=== PATIENT | male | born 1950 | race Caucasian/White ===

== ENCOUNTER 2022-03-13 05:56 | Inpatient (IN) ==
--- NOTE | 2022-02-27 11:18 | Anesthesiology Consultation ---
Date of Service February 27, 2022 Assessment & Plan (1) Encounter for pre-operative examination: - check BSG am DOS. - COVID screening: Per curriculum and assessment coordinator on 02/27/2022: Travel screen negative, no known COVID-19 positive contacts or current COVID-19 related symptoms in past 2 weeks. Pt vaccinated. Surgeon arranging preop COVID testing, scheduled 03/07/2022. Awaiting results. Chart Review Chart Review: Acceptable Risk for Surgery and Patient NOT seen in Pre Admission Testing History Surgery Operation Date: 03/11/22 07:45 Proposed Procedures p L4-L5 Revision Decompression and Fusion Spinal Cord Monitoring - João Montiel DO Height/Weight Height: 6 ft Weight: 102.965 kg Allergies Allergy/AdvReac Type Severity Reaction Status Date / Time propoxyphene Allergy Severe severe Verified 02/27/22 09:21 [[facility] hives Medications Home Medications Medication Instructions Recorded Confirmed Last Taken aspirin 81 mg tablet,delayed 81 mg PO QAM 05/24/19 02/27/22 Unknown release (Adult Low Dose Aspirin) meloxicam 7.5 mg tablet 7.5 mg PO QAM 05/24/19 02/27/22 Unknown multivitamin 1 tab PO QAM 05/24/19 02/27/22 Unknown omeprazole 20 mg capsule,delayed 20 mg PO QAM 05/24/19 02/27/22 Unknown release Medical Thc 1 dose inhalation UD PRN Pain 02/27/22 02/27/22 Unknown acetaminophen 500 mg tablet 1,000 - 2,000 mg PO TID PRN Pain 02/27/22 02/27/22 Unknown benazepril 40 mg tablet 40 mg PO QAM 02/27/22 02/27/22 Unknown hydrochlorothiazide 25 mg tablet 25 mg PO QAM 02/27/22 02/27/22 Unknown pioglitazone 30 mg tablet (Actos) 30 mg PO QAM 02/27/22 02/27/22 Unknown potassium 99 mg tablet 99 mg PO QAM 02/27/22 02/27/22 Unknown simvastatin 10 mg tablet 10 mg PO QAM 02/27/22 02/27/22 Unknown Past Medical History Medical History BPH (benign prostatic hyperplasia) no medication Diabetes mellitus, type 2 niddm GERD (gastroesophageal reflux disease) Hip pain Hyperlipidemia Hypertension Knee pain Left Lumbar disc herniation with radiculopathy Lumbar facet joint pain Medical marijuana use Nausea and vomiting after administration of anesthetic agent Spinal stenosis, lumbar region, with neurogenic claudication Trochanteric bursitis of right hip Weakness of right lower extremity Past Family History Family History Other No family history of adverse response to anesthesia Past Surgical History Surgical History H/O lumbar discectomy (~05/2021) laminectomy and discectomy (Dr Anuj Holbrook) [facility] History of appendectomy History of cataract surgery History of colonoscopy Hx of appendectomy S/P epidural steroid injection Social History Smoking Status: Never smoker Do You Dip or Chew Tobacco: No Hx Alcohol Use: Yes Alcohol type: beer alcohol intake frequency: a few times a month Hx Substance Use: Yes (medical marijuana) substance use type: marijuana Last Used Substance Other:: daily Lab Results Anesthesia Preop Results Results Anesthesia Widget: WBC 4.90 K/ul (4.8-10.8) 02/20/22 Hgb 14.0 g/dl (14.0-18.0) 02/20/22 Hct 40.9 % (40.1-51.0) 02/20/22 Plt 174 K/uL (130-400) 02/20/22 Na 142 mmol/L (136-145) 02/20/22 K 4.0 mmol/L (3.5-5.1) 02/20/22 Cl 106 mmol/L (98-107) 02/20/22 CO2 30 mmol/L (21-32) 02/20/22 BUN 21 mg/dl (6-23) 02/20/22 Creat 1.10 mg/dl (0.6-1.4) 02/20/22 Glucose Level 80 mg/dl (70-99(Fasting)) 02/20/22 PT 11.9 Seconds (9.0-12.0) 02/20/22 PTT 27.6 Seconds (21.0-31.0) 02/20/22 INR 1.1 (0.9-1.1) 02/20/22 Urine Color Yellow 02/20/22 Urine Appearance Clear (Clear) 02/20/22 Urine pH 7.0 (4.5-7.5) 02/20/22 Urine Specific Eldridge 1.027 (1.000-1.030) 02/20/22 Urine Protein Negative (Negative) 02/20/22 Urine Glucose (UA) Negative (Negative) 02/20/22 Urine Ketones Trace (Negative) H 02/20/22 Urine Blood Negative (Negative) 02/20/22 Urine Nitrite Negative (Negative) 02/20/22 Urine Bilirubin Negative (Negative) 02/20/22 Urine Urobilinogen Negative (Negative) 02/20/22 Urine Leukocyte Esterase Negative (Negative) 02/20/22 Blood Type B Positive 02/20/22 Antibody Screen NEGATIVE 02/20/22 Testing Electrocardiogram Date: 02/20/22 NSR, rate 81 bpm Chest X-Ray Date: 02/20/22 PA and lateral chest radiographs are obtained. No prior studies are available for comparison at the time of dictation. The heart is enlarged noting atherosclerotic calcification of the thoracic aorta. The pulmonary vasculature is noncongested. Nonspecific interstitial thickening is likely chronic. There is mild bibasilar scarring/atelectasis. No airspace consolidation or pleural effusion is identified. There is no pneumothorax. The skeletal structures are osteopenic. The bony thorax appears intact. IMPRESSION: Cardiomegaly with no active disease in the chest.
[~2022-03-13 05:56] MED LIST: ACETAMINOPHEN 500 MG TAB PO SCH; CeleBREX 200 MG CAP PO SCH; GABAPENTIN 300 MG CAP PO SCH; LR 15ML/HR IV SCH; ceFAZolin 2000MG 2,000 MG/15 ML SYR IV SCH
[2022-03-13] MEDS ORDERED: ACETAMINOPHEN 500 MG TAB PO SCH (06:00)
[2022-03-13] MEDS ORDERED: ceFAZolin 2000MG 2,000 MG/15 ML SYR IV SCH (06:00)
[2022-03-13] MEDS ORDERED: GABAPENTIN 300 MG CAP PO SCH (06:00)
[2022-03-13] MEDS ORDERED: CeleBREX 200 MG CAP PO SCH (06:00)
[2022-03-13] MEDS ORDERED: LR 15ML/HR IV SCH (07:15)
[2022-03-13] MEDS ORDERED: ceFAZolin 330 MG/ML 1 GM VIAL ONE (07:25)
[2022-03-13] MEDS ORDERED: BUPIVACAINE/EPINEPHRINE 0.25% 1:200,000 30 ML VIAL ONE (07:25)
[2022-03-13] MEDS ORDERED: ONDANSETRON INJ 2 MG/ML 2 ML VIAL ONE (07:31)
[2022-03-13] MEDS ORDERED: fentaNYL citrate 100 MCG/2 ML VIAL ONE ×2 (07:31→09:16)
[2022-03-13] MEDS ORDERED: ROCURONIUM BROMIDE 10 MG/ML 5 ML VIAL IV ONE (07:31)
[2022-03-13] MEDS ORDERED: MIDAZOLAM HCL 1 MG/ML 2ML VIAL ONE (07:31)
[2022-03-13] MEDS ORDERED: LIDOCAINE 2% MPF LOCAL 5 ML VIAL INFIL ONE (07:31)
[2022-03-13] MEDS ORDERED: PROPOFOL IV EMULSION 10 MG/ML 20 ML VIAL IV ONE (07:31)
[2022-03-13] MEDS ORDERED: DEXAMETHASONE SOD INJ 4 MG/ML VIAL ONE (07:31)
--- NOTE | 2022-03-13 07:46 | History & Physical Bridge Note ---
Date of Service March 13, 2022 History & Physical Bridge Note I have examined the patient, reviewed the History & Physical and in the interval since the performance of the History & Physical I have noted the following changes of clinical significance: no changes noted
[2022-03-13] MEDS ORDERED: SCOPOLAMINE 1 MG TDSY TD ONE (07:47)
--- NOTE | 2022-03-13 07:47 | History & Physical Report ---
Date of Service March 13, 2022 Assessment & Plan (1) Neurogenic claudication due to lumbar spinal stenosis: Plan: L4-L5 revision decompression fusion History of Present Illness Chief Complaint: Chronic back and leg pain Primary Care Provider: Ayush Wilson MD This is a 72-year-old male presents with worsening back and leg after failed extensive course of nonoperative care is here for surgical invention. Allergies Allergy/AdvReac Type Severity Reaction Status Date / Time propoxyphene Allergy Severe severe Verified 03/13/22 06:23 [From [facility]] [facility] Home Medications Medication Instructions Recorded Confirmed Type aspirin 81 mg tablet,delayed 81 mg PO QAM 05/24/19 03/13/22 History release (Adult Low Dose Aspirin) meloxicam 7.5 mg tablet 7.5 mg PO QAM 05/24/19 03/13/22 History multivitamin 1 tab PO QAM 05/24/19 03/13/22 History omeprazole 20 mg capsule,delayed 20 mg PO QAM 05/24/19 03/13/22 History release Medical Thc 1 dose inhalation UD PRN Pain 02/27/22 03/13/22 History acetaminophen 500 mg tablet 1,000 - 2,000 mg PO TID PRN Pain 02/27/22 03/13/22 History benazepril 40 mg tablet 40 mg PO QAM 02/27/22 03/13/22 History hydrochlorothiazide 25 mg tablet 25 mg PO QAM 02/27/22 03/13/22 History pioglitazone 30 mg tablet (Actos) 30 mg PO QAM 02/27/22 03/13/22 History potassium 99 mg tablet 99 mg PO QAM 02/27/22 03/13/22 History simvastatin 10 mg tablet 10 mg PO QAM 02/27/22 03/13/22 History Past Med/Surg History Medical History BPH (benign prostatic hyperplasia) no medication Diabetes mellitus, type 2 niddm GERD (gastroesophageal reflux disease) Hip pain Hyperlipidemia Hypertension Knee pain Left Lumbar disc herniation with radiculopathy Lumbar facet joint pain Medical marijuana use Nausea and vomiting after administration of anesthetic agent Spinal stenosis, lumbar region, with neurogenic claudication Trochanteric bursitis of right hip Weakness of right lower extremity Surgical History H/O lumbar discectomy (~05/2021) laminectomy and discectomy (Dr Anuj Holbrook) [facility] [place] History of appendectomy History of cataract surgery History of colonoscopy Hx of appendectomy S/P epidural steroid injection Family History Other No family history of adverse response to anesthesia Social History Smoking Status: Never smoker Second Hand Exposure: No; Do You Dip or Chew Tobacco: No; Tobacco Cessation Education Requested by Patient: No Hx Alcohol Use: Yes Alcohol type: beer Hx Substance Use: Yes (medical marijuana) Last Used Substance Other:: daily Preferred Language: Guamanian Communication Ability: Effective Hearing Ability: Normal Sales Contractor Required: No Beliefs That Will Affect Care: None marital status: Current Living Situation: Alone current occupational status: employed current occupation: [employer]- 2 days a week. Other Information That Helps Us Care for You: No Feels Safe at Home: Yes Safety Concerns: Feels Safe At This Time Assistive Devices: Cane, Denture - Upper, Denture - Lower and Glasses Assistive Devices Comment: cane prn Physical Exam Physical Exam: Patient is alert and oriented Heart regular rhythm Lungs clear Results & Data Results & Data ([facility]) Vital Signs (Past 12 Hours) Vital Signs Temp Pulse Resp BP Pulse Ox O2 Del Method 03/13/22 06:28 36.8 C 78 18 159/87 H 97 Room Air
[2022-03-13] MEDS ORDERED: LABETALOL HCL IV 5 MG/ML 20ML IV PRN (07:54)
[2022-03-13] MEDS ORDERED: ATROPINE SULFATE 0.1 MG/ML 10ML SYR IV PRN (07:54)
[2022-03-13] MEDS ORDERED: NALOXONE HCL 0.4 MG/1 ML VIAL/CARP IV PRN ×2 (07:54→12:35)
[2022-03-13] MEDS ORDERED: PROMETHAZINE HCL 12.5 MG in SODIUM CHLORIDE 0.9% 50 ML IV PRN ×2 (07:54→12:35)
[2022-03-13] MEDS ORDERED: ONDANSETRON INJ 2 MG/ML 2 ML VIAL IV PRN ×2 (07:54→12:35)
[2022-03-13] MEDS ORDERED: FLUMAZENIL 0.1 MG/1 ML 10 ML VIAL IV PRN (07:54)
[2022-03-13] MEDS ORDERED: ePHEDrine sulfate 50 MG/ML AMP IV PRN (07:54)
[2022-03-13] MEDS ORDERED: GLYCOPYRROLATE 0.2 MG/ML VIAL ONE (08:27)
[2022-03-13] MEDS ORDERED: NEOSTIGMINE METHYLSULFATE 1 MG/ML 10ML VIAL ONE (08:27)
[2022-03-13] MEDS ORDERED: KETAMINE 50 MG/5 ML SYRINGE ONE (08:32)
[2022-03-13] MEDS ORDERED: ePHEDrine sulfate 50 MG/ML SYR ONE (09:01)
[2022-03-13] MEDS ORDERED: FLOSEAL HEMOSTATIC MATRIX 10ML TOP ONE (09:21)
--- NOTE | 2022-03-13 09:28 | Operative Report ---
Post Operative Report Pre & Post Diagnosis Operation Date: 03/13/22 07:45 Pre-Op Diagnosis: Radiculopathy, Lumbar Region Post-Op Diagnosis: Radiculopathy, Lumbar Region I identified the patient and participated in the time-out.: Yes Procedure Operation Date: 03/13/22 07:45 Actual Procedures 1 revision decompression with bilateral medial facetectomies and foraminotomies L3-L4 L4-5 per #2 posterior spinal fusion L4-5 #3 placement posterior instrumentation L4-5. #4 interbody fusion L4-L5. #5 placement of Spira 14 x 26 mm cage at L4-5 per #6 placement locally harvested morselized autograft in the posterior gutters. #7 placement of I factor combined with V toss in the interbody space and posterior lateral gutters. Surgeon João Montiel, Nurse Auditor Cecilia Martines Estimated Blood Loss 100 Findings Consistent with Post-Op Diagnosis Specimens None Indications This is a 72-year-old male who presents above-mentioned diagnosis after failed course of nonoperative care is here for surgical invention. Description of Procedure Patient was met with identified informed consent obtained. Patient was then taken to the operative suite underwent a patient placed in a prone position on the [place] table top Jg frame. All bony prominences well-padded eyes inspected to ensure no external pressure placed upon them. This point lumbar spine was prepped and draped in a normal sterile fashion. Utilizing the previous incision site sharp dissection with assistance of Bovie cautery performed down to and exposing the remaining lamina and transverse processes of L4-L5 bilaterally. Then performed a complete revision complete laminectomy of L4 partial laminectomy of L3 including bilateral medial facetectomies and foraminotomies addressing severe spinal stenosis as well as recurrent disc herniation. After this complete pedicle screws were placed in L4-L5 bilaterally with assistance of fluoroscopy and appropriately sized brook placed. Bilateral transforaminal approach and right complete discectomy was performed endplates curetted to subcortical being bone and a 14 x 26 mm spiral cage filled with I factor tapped in position. The rods then compressed locked into final position bilaterally. The transverse processes of L4-L5 burred to subcortically bone. I factor combined with V toss and locally harvested morselized autograft was placed in the posterior gutters. 15 round ABRAHAM drain inserted. The incision was then closed with 1 Vicryl in the fascia 2-0 Vicryl subcutaneously and 4 Monocryl for final skin closure. Steri-Strip sterile dressings placed. Patient was awakened taken to PACU in stable condition. Please note spinal cord monitoring was utilized at the procedure no changes noted. Lastly Cecilia Martines was present at the entire procedure involved the patient positioning complex portions of the surgery and final skin closure. I attest to the content of the Intraoperative Record and any orders documented therein. Any exceptions are noted below.
[2022-03-13] MEDS: fentaNYL citrate 100 MCG/2 ML VIAL IV PRN ×4 (09:58→10:15)
[2022-03-13] MEDS: HYDROmorphone INJ 1 MG/ML SYRINGE IV PRN ×8 (10:18→11:16)
--- NOTE | 2022-03-13 10:39 | Fluoroscopy Report ---
FL lumbar spine 2-3V CLINICAL HISTORY: L4-L5 REVISION DECOMPRESSION AND FUSION COMPARISON STUDY: Lumbar spine MRI April 22, 2021. FLUOROSCOPY TIME: 21 seconds. FLUOROSCOPIC IMAGES: 2 FINDINGS: Fluoroscopy was provided during L4-L5 discectomy, posterior decompression and bilateral ped icle screw fusion. Hardware is intact. No unexpected radiopaque foreign bodies. IMPRESSION: Fluoroscopy provided during L4-L5 discectomy, posterior decompression and bilateral pedi aysha screw fusion ACT 112: Negative or not required by law. Electronically signed by: Garrett Dawn M.D. 03/13/2022 10:37 AM
--- NOTE | 2022-03-13 11:43 | Anesthesiology Progress Note ---
Date of Service March 13, 2022 Anesthesia Post Procedure Vital Signs Vital Signs: Temp Pulse Pulse Resp BP Pulse Ox O2 Del Method 03/13/22 11:20 80 16 141/78 H 94 Nasal Cannula 03/13/22 11:05 82 13 124/68 97 Nasal Cannula 03/13/22 10:55 36.4 C L 82 13 125/63 96 Nasal Cannula 03/13/22 10:45 83 12 119/71 97 Nasal Cannula 03/13/22 10:35 78 12 117/71 94 Room Air 03/13/22 10:25 88 17 155/89 H 95 Room Air 03/13/22 10:15 81 16 147/79 H 95 Room Air 03/13/22 10:05 81 17 151/89 H 98 Oxymask 03/13/22 09:55 80 18 151/83 H 97 Oxymask 03/13/22 09:46 36.2 C L 78 18 142/74 H 95 Oxymask 03/13/22 06:28 36.8 C 78 18 159/87 H 97 Room Air O2 Flow Rate 03/13/22 11:20 2 03/13/22 11:05 2 03/13/22 10:55 2 03/13/22 10:45 2 03/13/22 10:35 03/13/22 10:25 03/13/22 10:15 03/13/22 10:05 10 03/13/22 09:55 10 03/13/22 09:46 10 03/13/22 06:28 Pain Intensity Bilateral Back: Pain Intensity: 5 Transfer of Care Handoff Completed per policy Notes Mental Status: alert / awake / arousable Patient Amnestic to Procedure: Yes Nausea / Vomiting: adequately controlled Pain: adequately controlled Airway Patency, RR, SpO2: stable & adequate BP & HR: stable & adequate Hydration State: stable & adequate Anesthetic Complications: no major complications apparent
[2022-03-13] MEDS ORDERED: ACETAMINOPHEN 1,000 MG/100 ML VIAL IV PRN (12:35)
[2022-03-13] MEDS ORDERED: hydrOXYzine HCl 25 MG TAB PO PRN (12:35)
[2022-03-13] MEDS ORDERED: FAMOTIDINE 20 MG TAB PO PRN (12:35)
[2022-03-13] MEDS ORDERED: HYDROmorphone INJ 0.5 MG/0.5 ML SYR IV PRN (12:35)
[2022-03-13] MEDS ORDERED: bisacodyL 10 MG SUPP PR PRN (12:35)
[2022-03-13] MEDS ORDERED: LORazepam 0.5 MG TAB PO PRN (12:35)
[2022-03-13] MEDS ORDERED: MAGNESIUM HYDROXIDE SUSP 30 ML UDC PO PRN (12:35)
[2022-03-13] MEDS ORDERED: HYDROmorphone INJ 1 MG/ML SYRINGE IV PRN (12:35)
[2022-03-13] MEDS ORDERED: LORazepam 0.5 MG in SYRINGE 0.25 ML IV PRN (12:35)
[2022-03-13] MEDS ORDERED: METOCLOPRAMIDE HCL INJ 5 MG/ML 2 ML VIAL IV PRN (12:35)
[2022-03-13] MEDS ORDERED: traMADol HCL 50 MG TABLET PO PRN (12:35)
[2022-03-13] MEDS ORDERED: SOD PHOSPHATE/SOD BIPHOSPHATE ENEMA 132 ML BTL PR PRN (12:35)
[2022-03-13] MEDS ORDERED: ONDANSETRON 4 MG OD TAB PO PRN (12:35)
[2022-03-13] MEDS ORDERED: diphenhydrAMINE Capsule 25 MG CAP PO PRN (12:35)
[2022-03-13] MEDS ORDERED: ALUMINUM/MAGNESIUM SUSP 30 ML UDC PO PRN (12:35)
[2022-03-13] MEDS ORDERED: PHARMACY GLYCEMIC MGMT CONSULT PRN (12:35)
[2022-03-13] MEDS: SODIUM CHLORIDE 0.9% 1000ML 1,000 ML IV SCH ×2 (13:10→19:53)
[2022-03-13] MEDS ORDERED: DEXTROSE 50% 50 ML SYRINGE IV PRN (13:30)
[2022-03-13] MEDS ORDERED: GLUCAGON FOR INJ 1 MG VIAL IM PRN (13:30)
[2022-03-13] MEDS ORDERED: GLUCOSE 10 TAB/TUBE PO PRN (13:30)
[2022-03-13] MEDS ORDERED: CARBOHYDRATES FOR HYPOGLYCEMIA PO PRN (13:30)
[2022-03-13] MEDS ORDERED: GLUCOSE 40% GEL 15 GM TUBE PO PRN (13:30)
[2022-03-13] MEDS: INSULIN ASPART PER UNIT SC SCH ×3 (13:48→21:15)
[2022-03-13] MEDS: INSULIN HUMAN NPH SC SCH (13:57)
--- NOTE | 2022-03-13 17:18 | Hospitalist Consultation ---
Date of Consultation March 13, 2022 Assessment & Plan (1) Neurogenic claudication due to lumbar spinal stenosis: - Hx of lumbar radiculitis and spondylolisthesis of the lubar region, lunar disc herniation with radiculopathy Pain management, bowel regimen and DVT ppx per the primary team - PT/OT consults - Follow am CBC to monitor for acute blood loss, last hgb was 14 on 02/20 (2) Diabetes mellitus, type 2: - ISS with accuchecks achs -Unknown last A1c, check with a.m. labs, glucose fingersticks are running from the 130s to 150s today -Glycemic pharmacy consulted -Holding Actos during hospital stay (3) Hypertension: - Continue HCTZ, benazepril (4) Hyperlipidemia: -Continue statin therapy (5) GERD (gastroesophageal reflux disease): -Continue omeprazole (6) BPH (benign prostatic hyperplasia): -History of such, monitor status post anesthesia patient is able to urinate, bladder scans as needed DVT PPx: - teds, scds CODE: Full code Dispo: From home, likely to remain in the hospital x 1-2 days Supervising Physician Co-Signing Physician Notes Patient was seen and examined independently at bedside. Chart reviewed. Case discussed with Verona MATOS and agree with the documentation above with regards to HPI, PE, A/P. In summary, this is a 72 year old male with lumbar spinal stenosis with neurogenic claudication who underwent back surgery by Dr Montiel today. Post op, he feels good. AAOx4, sitting in chair, conversing well. Pain is controlled. tolerated po well, no N/V. voided without issues. Further surgical management per primary team. Chronic medical conditions stable. Rest as per the note above. History of Present Illness Reason for Consultation: Medical management Requesting Physician: Dr. Montiel Attending Physician: João Montiel DO History of Present Illness This is a 72 M with PMHx of HTN, HLD, DM type II, BPH, GERD and other medical conditions listed below who presented for lumbar decompression fusion by Dr. Montiel. He has had previous lumbar discectomy in May [address] Anuj Holbrook at [facility]. Today he had decompression with bilateral medial facetectomy and foraminotomies from L3-L5 and spinal fusion of L4-L5 by Dr. Montiel. Patient is doing well, reports his pain in his lower back status post surgery is coming back slightly. He is sitting up in a bedside chair. Denies any sharp pains going down both legs, no numbness or tingling. Prior to surgery he had shooting pains radiating down posterior aspect of both legs which is currently gone. He denies any bowel or bladder incontinence. States that he has been drinking fluids without any difficulty and is awaiting dinner. He has urinated 3-4 times since having surgery, denies any issues with urinary habits. Last bowel movement was this morning. Patient also notes that he uses medical marijuana card, and smokes a bowl/joint multiple times per day since he was 18. He drinks alcohol about 2 times per week, 3 beers at a time. He also notes having to previously seek out "black market" for pain medications as he was not being administered them by his pain management PCP due to having a medical marijuana card. He states this was only because his back pain was so severe status post his first surgery back in May. He denies any other IV drug use or abuse. Patient lives at home by himself and a 20 pound dog. He is worried about not being able to lift her as she does not walk well. Patient does not follow his glucoses at home at all, but does take his Actos as directed. Allergies Allergy/AdvReac Type Severity Reaction Status Date / Time propoxyphene Allergy Severe severe Verified 03/13/22 06:23 [From [facility]] hives Home Medications Medication Instructions Recorded Confirmed Type aspirin 81 mg tablet,delayed 81 mg PO QAM 05/24/19 03/13/22 History release (Adult Low Dose Aspirin) meloxicam 7.5 mg tablet 7.5 mg PO QAM 05/24/19 03/13/22 History multivitamin 1 tab PO QAM 05/24/19 03/13/22 History omeprazole 20 mg capsule,delayed 20 mg PO QAM 05/24/19 03/13/22 History release Medical Thc 1 dose inhalation UD PRN Pain 02/27/22 03/13/22 History acetaminophen 500 mg tablet 1,000 - 2,000 mg PO TID PRN Pain 02/27/22 03/13/22 History benazepril 40 mg tablet 40 mg PO QAM 02/27/22 03/13/22 History hydrochlorothiazide 25 mg tablet 25 mg PO QAM 02/27/22 03/13/22 History pioglitazone 30 mg tablet (Actos) 30 mg PO QAM 02/27/22 03/13/22 History potassium 99 mg tablet 99 mg PO QAM 02/27/22 03/13/22 History simvastatin 10 mg tablet 10 mg PO QAM 02/27/22 03/13/22 History oxycodone 5 mg tablet 5 mg PO Q6H PRN pain, severe #30 03/14/22 Rx tabs tramadol 50 mg tablet 50 mg PO Q6H PRN pain, moderate 03/14/22 Rx #30 tabs Patient History Medical History (Updated 03/13/22 @ 17:21 by Verona Persaud PA-C) BPH (benign prostatic hyperplasia) no medication Diabetes mellitus, type 2 niddm GERD (gastroesophageal reflux disease) Hip pain Hyperlipidemia Hypertension Knee pain Left Lumbar disc herniation with radiculopathy Lumbar facet joint pain Medical marijuana use Nausea and vomiting after administration of anesthetic agent Spinal stenosis, lumbar region, with neurogenic claudication Trochanteric bursitis of right hip Weakness of right lower extremity Surgical History H/O lumbar discectomy (~05/2021) laminectomy and discectomy (Dr Anuj Holbrook) [facility] History of appendectomy History of cataract surgery History of colonoscopy Hx of appendectomy S/P epidural steroid injection Family History Other No family history of adverse response to anesthesia Social History Smoking Status: Never smoker Second Hand Exposure: No; Do You Dip or Chew Tobacco: No; Tobacco Cessation Education Requested by Patient: No Hx Alcohol Use: Yes Alcohol type: beer Hx Substance Use: Yes (medical marijuana) Last Used Substance Other:: daily Preferred Language: Chinese Communication Ability: Effective Hearing Ability: Normal [place] Nurse Required: No Beliefs That Will Affect Care: None marital status: Current Living Situation: Alone current occupational status: employed current occupation: [employer]- 2 days a week. Other Information That Helps Us Care for You: No Feels Safe at Home: Yes Safety Concerns: Feels Safe At This Time Assistive Devices: None Assistive Devices Comment: cane prn Review of Systems Review of Systems: Constitutional: No fever, sweats or chills Eyes: No diplopia, no worsening or blurred vision ENT: normal hearing, no trouble swallowing Respiratory: No cough, sputum, dyspnea at rest or on exertion Cardiovascular: No chest pain, tightness or palpitations Abdomen: No pain, nausea, vomiting, diarrhea or constipation Musculoskeletal: No joint pain, calf pain, swelling Back: Slight back pain status post surgical procedure Neurologic: No weakness, numbness/tingling, or balance problems Psychiatric: No anxiety or depression Skin: No rash or itch Physical Exam Physical Exam: General: awake, alert, no apparent distress Head: Normocephalic, atraumatic ENT: PERRL, EOMI, no pharyngeal exudate, mucous membranes moist Chest: Clear to auscultation, on room air, no adventitious breath sounds Cardiac: Regular rate and rhythm, no murmur, no JVD, normal peripheral pulses, good capillary refill Abdominal: NABS x 4 quadrants, soft, nondistended, nontender to palpation, no rebound or guarding Back: Dressing is C/D/I, ABRAHAM drain in place with serosanguineous bloody outs Extremities: Normal inspection, + trace peripheral edema in BLE, no erythema, calfs nontender to palpation Psych: Normal mood and affect Neuro: AAO x 3, strength intact bilaterally and rated 5/5, no motor deficits, speech is clear, no peripheral sensory deficits Results & Data Results & Data ([facility]) Vital Signs (Past 12 Hours) Vital Signs Temp Pulse Pulse Pulse Resp BP Pulse Ox 03/13/22 16:55 87 03/13/22 15:15 36.7 C 101 H 16 131/75 95 03/13/22 14:10 95 H 18 164/95 H 96 03/13/22 13:10 88 20 144/72 H 96 03/13/22 12:40 36.5 C 83 19 121/73 95 03/13/22 12:20 73 13 114/63 93 03/13/22 12:05 72 13 126/60 93 03/13/22 11:50 76 20 122/74 93 03/13/22 11:35 77 21 140/86 94 03/13/22 11:20 80 16 141/78 H 94 03/13/22 11:05 82 13 124/68 97 03/13/22 10:55 36.4 C L 82 13 125/63 96 03/13/22 10:45 83 12 119/71 97 03/13/22 10:35 78 12 117/71 94 03/13/22 10:25 88 17 155/89 H 95 03/13/22 10:15 81 16 147/79 H 95 03/13/22 10:05 81 17 151/89 H 98 03/13/22 09:55 80 18 151/83 H 97 03/13/22 09:46 36.2 C L 78 18 142/74 H 95 03/13/22 06:28 36.8 C 78 18 159/87 H 97 O2 Del Method O2 Flow Rate 03/13/22 16:55 03/13/22 15:15 Room Air 03/13/22 14:10 Nasal Cannula 2 03/13/22 13:10 Nasal Cannula 2 03/13/22 12:40 Nasal Cannula 2 03/13/22 12:20 Nasal Cannula 2 03/13/22 12:05 Nasal Cannula 2 03/13/22 11:50 Nasal Cannula 2 03/13/22 11:35 Nasal Cannula 2 03/13/22 11:20 Nasal Cannula 2 03/13/22 11:05 Nasal Cannula 2 03/13/22 10:55 Nasal Cannula 2 03/13/22 10:45 Nasal Cannula 2 03/13/22 10:35 Room Air 03/13/22 10:25 Room Air 03/13/22 10:15 Room Air 03/13/22 10:05 Oxymask 10 03/13/22 09:55 Oxymask 10 03/13/22 09:46 Oxymask 10 03/13/22 06:28 Room Air Laboratory Results 03/13/22 03/13/22 03/13/22 12:57 10:29 06:30 POC Glucose 157 H 156 H 134 H SARS-CoV-2, RNA, NAAT 03/13/22 06:10 POC Glucose SARS-CoV-2, RNA, NAAT NEGATIVE Diagnostic Findings Lumbar Spine X-Ray 03/13/22 07:45 [place] lumbar spine 2-3V CLINICAL HISTORY: L4-L5 REVISION DECOMPRESSION AND FUSION COMPARISON STUDY: Lumbar spine MRI April 22, 2021. FLUOROSCOPY TIME: 21 seconds. FLUOROSCOPIC IMAGES: 2 FINDINGS: Fluoroscopy was provided during L4-L5 discectomy, posterior decompression and bilateral pedicle screw fusion. Hardware is intact. No unexpected radiopaque foreign bodies. IMPRESSION: Fluoroscopy provided during L4-L5 discectomy, posterior decompression and bilateral pedicle screw fusion ACT 112: Negative or not required by law. Electronically signed by: Garrett Dawn M.D. 03/13/2022 10:37 AM
[2022-03-13] MEDS: ceFAZolin 2000MG 2,000 MG/15 ML SYR IV SCH ×2 (17:52→23:35)
[2022-03-13] MEDS: oxyCODONE HCL IR 5 MG TAB (IMMEDIATE RELEASE) PO PRN ×2 (17:52→23:34)
[2022-03-13] MEDS: DOCUSATE SODIUM/SENNA 50/8.6MG TAB PO SCH (19:54)
[2022-03-14] MEDS: SODIUM CHLORIDE 0.9% 1000ML 1,000 ML IV SCH (00:54)
[2022-03-14] MEDS: POLYETHYLENE (MIRALAX) 17 GM PACK PO SCH ×4 (06:02→23:59)
[2022-03-14] MEDS: oxyCODONE HCL IR 5 MG TAB (IMMEDIATE RELEASE) PO PRN ×3 (07:15→21:14)
[2022-03-14] MEDS: ACETAMINOPHEN 500 MG TAB PO PRN ×2 (07:15→17:26)
[2022-03-14] MEDS: SIMVASTATIN 10 MG TAB PO SCH (08:51)
[2022-03-14] MEDS: ENALAPRIL MALEATE 10 MG TAB PO SCH (08:51)
[2022-03-14] MEDS: hydroCHLOROthiazide 25 MG TAB PO SCH (08:51)
[2022-03-14] MEDS: ASPIRIN 81 MG ECTAB PO SCH (08:52)
[2022-03-14] MEDS: MULTIVITAMIN TAB PO SCH (08:52)
[2022-03-14] MEDS: PANTOprazole 40 MG TAB PO SCH (08:52)
[2022-03-14] MEDS: dexAMETHasone 6 MG in SYRINGE 0 ML IV SCH (08:53)
[2022-03-14] MEDS ORDERED: NON-FORMULARY MEDICATION (Potassium 99 mg Tablet) PO SCH (09:00)
[2022-03-14] MEDS ORDERED: NON-FORMULARY MEDICATION (Pioglitazone [Actos] 30 mg Tablet) PO SCH (09:00)
[2022-03-14 09:01] LABS: Basophils # (auto) 0.01 K/uL (0-0.2); Basophils % (auto) 0.1 %; Eosinophils # (auto) 0.01 K/uL (0-0.50); Eosinophils % (auto) 0.1 %; Hematocrit (blood only) 36.1 % (40.1-51.0); Hemoglobin 12.2 g/dl (14.0-18.0); Immature Granulocytes # (auto) 0.03 K/uL (0.00-0.02); Immature Granulocytes % (auto) 0.4 %; Lymphocytes # (auto) 0.55 K/uL (1.2-3.4); Lymphocytes % (auto) 6.6 %; Mean Corpuscular Hemoglobin 31.5 pg (25.0-34.0); Mean Corpuscular Hgb Conc 33.8 g/dL (32.0-36.0); Mean Corpuscular Volume 93.3 fL (80.0-100.0); Mean Platelet Volume 11.9 fL (9.4-12.4); Neutrophils % (auto) 80.8 %; Platelet Count 179 K/uL (130-400); RDW Coefficient of Variation 12.7 % (11.5-14.5); RDW Standard Deviation 43.3 fL (36.4-46.3); Red Blood Count 3.87 M/uL (4.63-6.08)
[2022-03-14 09:24] LABS: BUN Creatinine Ratio 14.9 (10-20); Calcium 8.8 mg/dl (8.5-10.1); Creatinine Clr Calc Pharmacy 70.7 ml/min; Est GFR (African American) 69.9 ml/min; Est GFR (Non-African American) 60.3 ml/min; Potassium 3.4 mmol/L (3.5-5.1)
[2022-03-14] MEDS: INSULIN HUMAN NPH SC SCH (09:33)
[2022-03-14] MEDS: INSULIN ASPART PER UNIT SC SCH ×4 (09:35→20:50)
[2022-03-14 09:41] LABS: Estimated Average Glucose 117 mg/dl; Hemoglobin A1C 5.7 % (4.5-5.6)
--- NOTE | 2022-03-14 10:58 | Pharmacy Report ---
Pharmacy Glycemic Short Note 2 - Date of Service March 14, 2022 - Glycemic Short BSG Results (Last 24 hours): 03/13/22 03/13/22 03/14/22 12:57 21:01 08:06 Glucose POC Glucose 157 H 115 H 105 H 03/14/22 08:26 Glucose 94 POC Glucose OUTPATIENT ANTIDIABETIC REGIMEN: * Pioglitazone 30 mg PO daily * HbA1c = 5.7% (03/14/22 ASSESSMENT: * 72 yo M admitted status post L4-L5 decompression and fusion. Pharmacy has been consulted to assist with inpatient glycemic management. Patient has history of T2DM well controlled as outpatient on Pioglitazone monotherapy. Given A1c is well below goal, could consider reducing Pioglitazone dose to 15 mg daily or discontinuing therapy altogether. Would leave this decision up to PCP. * Ordered and tolerating a T2DM diet. Received 8 mg IV dexamethasone intra operatively yesterday. Was started on NPH 30 units (0.3 units/kg) and Novolog based on weight/stress of 3. * Fasting BSG well controlled at 105 mg/dL this AM. No change to NPH. Patient ordered 6 mg IV dexamethasone daily x 3 days. * May have to loosen Novolog this afternoon. PLAN FOR INPATIENT GLYCEMIC CONTROL: * Hold outpatient oral diabetes medications * Basal insulin * NPH 30 units SC daily (to be give with IV dexamethasone) * Bolus insulin * NovoLog per scale ACHS or Q6hrs while NPO * Goal Range: Low 110 mg/dL - High 140 mg/dL * Correction Factor: 15 mg/dL/unit * Nutritional / Prandial insulin per carb ratio of 1 unit per 5 grams CHO consumed
[2022-03-14] MEDS ORDERED: POTASSIUM CHLORIDE CRTAB 20 MEQ TABCR PO ONE (12:24)
--- NOTE | 2022-03-14 14:13 | Orthopedic Progress Note ---
Date of Service March 14, 2022 Assessment & Plan (1) Neurogenic claudication due to lumbar spinal stenosis: Plan: This time continue physical therapy monitor ABRAHAM operatively discharge home in the next few days. Admission and Anticipated Discharge Date Admission Date: March 13, 2022 Subjective Patient's back pain is controlled leg symptoms markedly improved. Physical Exam Physical Exam: Patient is sitting up at the bedside. Is good strength donna ting. Appears comfortable. Results & Data ([facility]) Vital Signs (Past 12 Hours) Vital Signs Temp Pulse Resp BP Pulse Ox O2 Del Method 03/14/22 07:06 36.7 C 71 20 118/68 95 Room Air 03/14/22 04:05 36.8 C 79 124/73 94 Room Air
--- NOTE | 2022-03-14 14:30 | Hospitalist Progress Note ---
Date of Service March 14, 2022 Assessment & Plan (1) Neurogenic claudication due to lumbar spinal stenosis: Plan: S/p back surgery 03/13 (1.revision decompression with bilateral medial facetectomies and foraminotomies L3-L4 L4-5 per #2 posterior spinal fusion L4-5 #3 placement posterior instrumentation L4-5. #4 interbody fusion L4-L5. #5 placement of Spira 14 x 26 mm cage at L4-5 per #6 placement locally harvested morselized autograft in the posterior gutters. #7 placement of I factor combined with V toss in the interbody space and posterior lateral gutter) - pain management, DVT ppx, activities per primary team (2) Diabetes mellitus, type 2: Plan: A1c 5.7. Well controlled -Glycemic pharmacy managing insulin -Holding Actos during hospital stay (3) Hypertension: Plan: - Continue HCTZ, benazepril (4) Hyperlipidemia: Plan: -Continue statin therapy (5) GERD (gastroesophageal reflux disease): Plan: -Continue omeprazole (6) BPH (benign prostatic hyperplasia): Plan: -History of such, monitor status post anesthesia patient is able to urinate, bladder scans as needed Hypokalemia- repleted DVT PPx: per primary team Dispo: Per primary team. He is stable from hospitalist perspective. Admission and Anticipated Discharge Date Admission Date: March 13, 2022 Subjective He feels fine. Pain is controlled. Tolerating diet well. Voiding without issues. passing gas, no BM yet but feels like he is going to have one. He states he feels ready to go home today. Didn't get much sleep overnight. Physical Exam Physical Exam: General: Sitting comfortably in bed, not in distress, on room air HEENT: EOMI, PERRL, MMM Chest: Clear breath sounds bilaterally, no wheezes or crackles CVS: Regular rate and rhythm, normal heart sounds, no murmur Abdomen: Soft, non tender, not distended, normal bowel sounds Back: Incision site covered with dressing, ABRAHAM drain with serosanguineous output Neuro: Awake, alert, oriented, conversing well, non focal Extremities: No edema Results & Data Results & Data ([facility]) Vital Signs (Past 12 Hours) Vital Signs Temp Pulse Resp BP Pulse Ox O2 Del Method 03/14/22 07:06 36.7 C 71 20 118/68 95 Room Air 08/26/22 04:05 36.8 C 79 124/73 94 Room Air
[2022-03-14 16:03] VITALS: O2SAT 96
[2022-03-14] MEDS: DOCUSATE SODIUM/SENNA 50/8.6MG TAB PO SCH (20:50)
[2022-03-15] MEDS: POLYETHYLENE (MIRALAX) 17 GM PACK PO SCH ×2 (05:51→13:04)
[2022-03-15] MEDS: oxyCODONE HCL IR 5 MG TAB (IMMEDIATE RELEASE) PO PRN ×2 (06:19→11:06)
[2022-03-15 07:34] VITALS: PULSE 60; TEMP 98.1
[2022-03-15] MEDS: PANTOprazole 40 MG TAB PO SCH (08:27)
[2022-03-15] MEDS: hydroCHLOROthiazide 25 MG TAB PO SCH (08:27)
[2022-03-15] MEDS: ENALAPRIL MALEATE 10 MG TAB PO SCH (08:27)
[2022-03-15] MEDS: MULTIVITAMIN TAB PO SCH (08:27)
[2022-03-15] MEDS: SIMVASTATIN 10 MG TAB PO SCH (08:28)
[2022-03-15] MEDS: dexAMETHasone 6 MG in SYRINGE 0 ML IV SCH (08:28)
[2022-03-15] MEDS: ASPIRIN 81 MG ECTAB PO SCH (08:28)
[2022-03-15] MEDS ORDERED: INSULIN HUMAN NPH SC SCH (09:00)
[2022-03-15] MEDS: INSULIN ASPART PER UNIT SC SCH ×2 (09:39→13:21)
--- NOTE | 2022-03-15 09:57 | Discharge Summary ---
Date of Service March 15, 2022 Admission HPI Per Admitting Provider This is a 72-year-old male presents with worsening back and leg after failed extensive course of nonoperative care is here for surgical invention. Principal Diagnosis Lumbar spinal stenosis with radiculopathy Discharge Data Allergies Allergy/AdvReac Type Severity Reaction Status Date / Time propoxyphene Allergy Severe severe Verified 03/13/22 06:23 [From Karley] hivstephanie Consultations 03/13/22 12:35 Consult Hospitalist Routine Procedures Performed Operation Date: 03/13/22 07:45 Actual Procedures p L4-L5 Revision Decompression and Fusion, Spinal Cord Monitoring(Not Applicable) - João Montiel DO Ordered Studies 03/13/22 07:45 FL lumbar spine 2-3V Routine Hospital Course (1) Neurogenic claudication due to lumbar spinal stenosis: Patient underwent lumbar decompression fusion tolerated this well was taken to orthopedic floor postoperatively postop day 1 he was up and ambulating he is postop day 2 on postop day 2 he is up and ambulating good strength testing ABRAHAM drain decreased appropriately subsequently discharged home. Discharge orders instructions found in chart for further review. Total Time Total Time Spent Total Time Spent (In Minutes): 20 minutes Discharge Plan Discharge Items Patient Disposition: Home - Self-Care Reason For Visit: Radiculopathy, Lumbar Region Discharge Diagnosis: Lumbar spinal stenosis with radiculopathy Activity: As commented below Non-emergency contact: Primary Care Provider Call non-emergency contact if: you have any medication questions Follow-up/Referrals: Ayush Wilson MD [Primary Care Provider] - Diet: Regular Addtl Attending Provider Instructions: ACTIVITY RECOMMENDATIONS: SELF CARE INSTRUCTIONS AFTER THORACIC/LUMBAR FUSIONS 1. You may walk to your tolerance. It is good exercise for your legs and back. Expect some back and intermittent leg aches and pains. 2. You may perform "counter-top" level activities (make a sandwich, nan with a project, etc.). 3. No bending or lifting of more than 10 pounds or back twisting of any nature (roll like a log when turning in bed). 4. You may ride in a car for 20-30 minutes at a time. No driving until after your first visit with your doctor. 5. Frequent changes of position and restricting sitting to 30 minutes at a time will help limit the amount of back spasms and stiffness you may experience. 6. You may discontinue the use of ambulatory aids (cane, crutches, etc.) once your strength and confidence allow. 7. You may licensed practical nurse instructor the shower and let water strike your incision when you a rrive home at least once daily. Do not take a tub bath, sit in a hot tub or go into a swimming pool until after your first recheck in the office. SPECIAL CARE INSTRUCTIONS: VERY IMPORTANT TO READ AND REVIEW A. Your surgical incision has been closed with a cosmetic suture under the skin that will dissolve in about 6 weeks. In 14 days, you can use a pair of clean scissors and cut the suture that is left outside of the skin at the ends of your incision. 1. The small skin tapes can be removed 7 days after surgery if they have not fallen off by that point. 2. You may keep the wound open to air as much as possible to promote healing after post-op day number 5 unless told otherwise by your doctor. 3. If you think the wound looks like it is becoming infected (redness or worsening drainage) and/or you are experiencing fever, chill or worsening back pain and muscle spasms, contact the office so that we may evaluate you as soon as possible. B. Complications are uncommon, but please contact us if you have any signs or symptoms of: 1. wound infection (fever higher than 102.5 degrees F, redness, separation of wound, drainage, or increasing pain from the incision) 2. blood clots in legs (pain, swelling, redness and warmth in legs) 3. urinary tract infection (fever higher than 102.5 degrees F, burning upon urination or increased frequency of urination) 4. nerve problems (inability to walk on your toes or heels, numbness, loss of bowel or bladder control) 5. any other symptoms that concern you C. Please call the office at if you have any concerns or questions about your operation or recovery. D. No smoking! Smoking drastically decreases the chance of a solid fusion. E. Do not take any anti-inflammatory medications (Indocin, Advil, Motrin, Aspirin, Naprosyn, etc.) as these may inhibit the chance of a solid fusion. Tylenol is okay to take for pain. MANAGING PAIN AFTER SPINAL SURGERY 1. Narcotic medication is intended for short-term use and will be provided for surgical pain. Surgical pain usually lasts for a period of 4-6 weeks. Narcotic medication includes Percocet, Vicodin, Darvocet, Tylenol #3 or Lortab. 2. Longer-term pain is more appropriately treated with non-narcotic medication such as Tylenol ES. 3. Muscle spasm is not appropriately treated with narcotics. Muscle relaxers such as Soma, Flexeril or Skelaxin can be used along with Tylenol ES. 4. Remember that we all live with some "aches and pains". This is not unusual or uncommon after an injury or as we get older. a. Back pain is expected and may include muscle spasms for 4 to 6 weeks afte r surgery. The pain should gradually improve. If the pain worsens for no apparent reason, please contact the office. b. Intermittent leg pain may also be experienced and should not be concerned about unless it worsens for no apparent reason. If so, please contact the office. 5. We will provide appropriate medication within the normal guidelines of their prescribed use. We will also be very cautious and aware of potential abuse and extended duration of patients' medication needs. a. Pain medications are for your comfort and to assist with sleep and rest so that the tissue can heal. They are not provided in order to return to normal activity and should not be used through the day. To do so or worsening pain at night can result from ongoing tissue damage and development of tolerance to the prescribed medicine. 6. Please allow 2-3 days to process refills. Prescriptions will not be mailed but must be picked up at the office. FOLLOW UP VISIT: Keep your scheduled follow-up appointment. Any questions, please call the office at . Pending Studies at Discharge: No Stand-Alone Forms: My [facility] [employer], Smoking Cessation Medications and DC Order Prescriptions: New tramadol 50 mg tablet 50 mg PO Q6H PRN (Reason: pain, moderate) Qty: 30 0RF oxycodone 5 mg tablet 5 mg PO Q6H PRN (Reason: pain, severe) Qty: 30 0RF Continued meloxicam 7.5 mg tablet 7.5 mg PO QAM aspirin [Adult Low Dose Aspirin] 81 mg tablet,delayed release (DR/EC) 81 mg PO QAM multivitamin tablet 1 tab PO QAM omeprazole 20 mg capsule,delayed release(DR/EC) 20 mg PO QAM simvastatin 10 mg Tablet 10 mg PO QAM acetaminophen 500 mg Tablet 1,000 - 2,000 mg PO TID PRN (Reason: Pain) potassium 99 mg Tablet 99 mg PO QAM hydrochlorothiazide 25 mg Tablet 25 mg PO QAM benazepril 40 mg Tablet 40 mg PO QAM pioglitazone [Actos] 30 mg Tablet 30 mg PO QAM Medical Thc 1 dose inhalation UD PRN (Reason: Pain) Discharge Orders: Discharge Order (Routine); Ordered 03/15/22 Ordered By: João Montiel Admission Data Admit Date/Time: 03/13/22 09:35 Attending Provider: João Montiel Admit Provider: João Montiel Primary Care Provider: Ayush Wilson Other Providers: Quynh Gould
[2022-03-15 11:16] VITALS: BP 163/83
--- NOTE | 2022-03-15 11:38 | Hospitalist Progress Note ---
Date of Service March 15, 2022 Assessment & Plan (1) Neurogenic claudication due to lumbar spinal stenosis: Plan: S/p back surgery 03/13 (1.revision decompression with bilateral medial facetectomies and foraminotomies L3-L4 L4-5 per #2 posterior spinal fusion L4-5 #3 placement posterior instrumentation L4-5. #4 interbody fusion L4-L5. #5 placement of Spira 14 x 26 mm cage at L4-5 per #6 placement locally harvested morselized autograft in the posterior gutters. #7 placement of I factor combined with V toss in the interbody space and posterior lateral gutter) - pain management, DVT ppx, activities per primary team (2) Diabetes mellitus, type 2: Plan: A1c 5.7. Well controlled -Glycemic pharmacy managing insulin Resume Actos at discharge (3) Hypertension: Plan: - Continue HCTZ, benazepril (4) Hyperlipidemia: Plan: -Continue statin therapy (5) GERD (gastroesophageal reflux disease): Plan: -Continue omeprazole (6) BPH (benign prostatic hyperplasia): Plan: voiding without issues. Hypokalemia- repleted DVT PPx: per primary team Dispo: Per primary team. He is stable from hospitalist perspective. Admission and Anticipated Discharge Date Admission Date: March 13, 2022 Subjective Feels good. Feels ready to go home. Eating normally. Voiding without issues. Passing gas, no BM yet. Pain is controlled. States he ambulated yesterday. Physical Exam Physical Exam: General: Sitting comfortably in bed, not in distress, on room air HEENT: EOMI, PERRL, MMM Chest: Clear breath sounds bilaterally, no wheezes or crackles CVS: Regular rate and rhythm, normal heart sounds, no murmur Abdomen: Soft, non tender, not distended, normal bowel sounds Back: Incision site covered with dressing, ABRAHAM drain with serosanguineous output Neuro: Awake, alert, oriented, conversing well, non focal Extremities: No edema Results & Data Results & Data ([facility]) Vital Signs (Past 12 Hours) Vital Signs Temp Pulse Pulse Pulse Resp BP BP 03/15/22 11:13 36.7 C 95 H 60 56 L 16 128/72 163/83 H 03/15/22 07:33 36.7 C 60 16 128/72 Pulse Ox O2 Del Method 03/15/22 11:13 96 08/27/22 07:33 96 Room Air
== END 2022-03-15 14:11 | disposition home or self-care (01) | DRG 455 ==
LOC: ASU 05:56 → PACUINP 09:35 → 3N 15:21
DX: Z79.1 Long term (current) use of non-steroidal anti-inflammatories (NSAID); Z79.899 Other long term (current) drug therapy; E11.9 Type 2 diabetes mellitus without complications; Z88.5 Allergy status to narcotic agent; I10 Essential (primary) hypertension; K21.9 Gastro-esophageal reflux disease without esophagitis; Z79.84 Long term (current) use of oral hypoglycemic drugs; E78.5 Hyperlipidemia, unspecified; N40.0 Benign prostatic hyperplasia without lower urinary tract symptoms; Z79.82 Long term (current) use of aspirin; Z98.890 Other specified postprocedural states; M51.16 Intervertebral disc disorders with radiculopathy, lumbar region; M48.062 Spinal stenosis, lumbar region with neurogenic claudication

== ENCOUNTER 2024-09-26 11:12 | Inpatient (IN) ==
[2024-09-26 11:58] LABS: Basophils # (auto) 0.02 K/uL (0.00-0.20); Basophils % (auto) 0.3 %; Eosinophils # (auto) 0.03 K/uL (0.00-0.50); Eosinophils % (auto) 0.5 %; Hemoglobin 15.2 g/dl (14.0-18.0); Immature Granulocytes # (auto) 0.02 K/uL (0.01-0.20); Immature Granulocytes % (auto) 0.3 %; Lymphocytes # (auto) 0.35 K/uL (1.20-3.40); Lymphocytes % (auto) 5.7 %; Mean Corpuscular Hemoglobin 31.5 pg (25.0-34.0); Mean Corpuscular Hgb Conc 34.5 g/dL (32.0-36.0); Mean Corpuscular Volume 91.1 fL (80.0-100.0); Monocytes # (auto) 0.56 K/uL (0.11-0.59); Monocytes % (auto) 9.1 %; Neutrophils % (auto) 84.1 %; Platelet Count 174 K/uL (130-400); RDW Coefficient of Variation 13.1 % (11.5-14.5); Red Blood Count 4.83 M/uL (4.70-6.10); White Blood Count 6.18 K/ul (4.8-10.8)
[2024-09-26 12:10] LABS: Albumin Globulin Ratio 1.8 (0.9-2); Albumin Level 4.6 gm/dl (3.4-5.0); BUN Creatinine Ratio 18.3 (10-20); Bilirubin,Total 0.7 mg/dl (0.2-1.0); Calcium 10.3 mg/dl (8.6-10.3); Creatinine Clr Calc Pharmacy 78.9 ml/min; Globulin 2.6 gm/dl (2.5-4.0); Potassium 3.9 mmol/L (3.5-5.1); Total Protein 7.2 gm/dl (6.0-8.3)
[2024-09-26 12:16] LABS: Troponin I High Sensitivity 14.2 pg/ml (0-20)
--- NOTE | 2024-09-26 12:23 | XRay Report ---
XR chest 1V not portable CLINICAL HISTORY: Chest pain, nonspecific COMPARISON STUDY: 02/20/2022 FINDINGS: Single view chest is unchanged. No acute cardiopulmonary process identified. There is no ai rspace opacity or pleural effusion. Some chronic fibrotic change at the cardiac apex. There is no pne umothorax or significant atelectasis. Heart size remains slightly increased with normal pulmonary vas cularity. IMPRESSION: Stable exam; no acute process identified ACT 112: Negative or not required by law. Electronically signed by: Dina Stokes M.D. 09/26/2024 12:22 PM
[2024-09-26 12:24] LABS: INR 1.1 (0.9-1.1); Partial Thromboplastin Time 27 Seconds (21-31)
--- NOTE | 2024-09-26 13:00 | Emergency Department Note ---
Impression & Plan Hypertensive urgency, Chest pain, Fatigue due to excessive exertion ED Provider Note NAME: GIOVANI TOBAR AGE: 74 SEX: M : 1950 ARRIVES VIA: Walk-In INFORMANT: Patient, ED PROVIDER(S): Curtis Rodriguez MD CHIEF COMPLAINT: Chest pain, high blood pressure MEDICAL DECISION MAKING: Patient presents to concern for chest pains and high blood pressure. IV was established and blood work is obtained. No active chest pain currently but has complaint of exertional fatigue. The patient is significantly hypertensive. Patient with a normal white count hemoglobin and platelet count kidney function is unremarkable with normal electrolytes. Noted troponin of 14. Patient had reported that he had a small rash to the right lower extremity. Small area which does not show evidence of obvious target lesion. Patient denies any tick bites. Chest x-ray without any acute findings. Patient still significantly hypertensive and given the patient's exertional fatigue there is a possible concern for possible anginal equivalent. Patient was ordered IV labetalol 10 mg. I did speak the on-call hospital service Dr. Pittman and the patient was admitted to the medicine service. Critical Care: I have personally spent 35 minutes of critical care time in direct management of this patient. This includes bedside care, interpretation of diagnostic studies, and testing, discussion with consultants, patient, and family members, and other require inpatient management activities. This 35 minutes is in excess of all separately billable procedures. Discussion w/ other healthcare providers: Dr. Pittman inpatient medicine service Prior /Outside records reviewed: None Differential diagnosis: Benign hypertension, hypertensive emergency, hypertensive emergency/urgency, salt intake, pheochromocytoma, electrolyte abnormality, renal disease as well as other etiologies were entertained. Diagnostics, as interpreted by me: ECG: Normal sinus rhythm, rate of 86, normal intervals, normal axis no ST elevations. Cardiac monitoring: An order was placed for continuous cardiac monitoring. The monitor shows a rate of 87 with sinus rhythm. Patient was placed on pulse oximetry Medical decision rules: None Imaging studies: I informally interpreted the patient's chest x-ray does not show obvious pneumonia or pneumothorax with formal report to follow. HPI: Patient presents due to concern for chest pains. Patient reports that this past he was doing some basement work where he was patching some cracks with some hydraulic cement felt a burning that could have washed over his chest and states that ever since then he is felt more fatigable. The patient denies any active chest pains currently but has significant exertional fatigue. Patient denies any shortness of breath or cough. Patient states that he presented today as his symptoms of exertional fatigue have been persistent he was noted to have an elevated blood pressure today. Patient states that he currently does not take anything for blood pressure. He states that most recently when he was seen by his PCP his systolic was in the 150s and was told just to monitor it. Patient reports that he was at pain management several weeks ago and it was noted to be in the high 170s and was told just to follow- up. Patient denies any increase in salt or processed foods in the diet. He does report that he does not specifically watch his salt but he has had no recent changes. Patient does use medical marijuana but denies any tobacco or drug use. Patient denies any leg swelling or calf pain. Patient states that he did have some dizziness and some clammy skin. PAST MEDICAL HISTORY: See Below PAST SURGICAL HISTORY: See Below SOCIAL HISTORY: See Below HOME MEDICATIONS: See Below ALLERGIES: See Below VITALS: See Below PHYSICAL EXAMINATION: GENERAL: NAD, non-toxic. EYE EXAM: Normal conjunctiva. PERRL, no anisocoria and EOM's grossly intact w/o pain. OROPHARYNX: Moist mucus membranes, grossly normal dentition. NECK: Trachea midline, no stridor. LUNGS: Clear to auscultation. Normal chest wall mechanics. HEART: NSR, no MRG. ABDOMEN: Abdomen soft, non-tender, no masses, no rebound or guarding. BACK: No CVA TTP. SKIN: 3 x 1 cm area of blanching redness over the right mid smith. No obvious target lesion. UPPER EXTREMITIES: Upper extremities are grossly normal. LOWER EXTREMITIES: Grossly normal, no edema. NEURO EXAM: A&O x3, cranial nerves II-XII grossly intact, normal speech, moves all 4 extremities. Past Med/Surg History Problem List (Updated 09/27/24 @ 16:59 by Curtis Rodriguez MD) Fatigue due to excessive exertion (Acute) Chest pain (Acute) Hypertensive urgency (Acute) Dyslipidemia, goal LDL below 70 HTN, goal below 130/80 Uncontrolled hypertension Hypertensive urgency Chest pain Osteoarthritis of knees, bilateral BPH (benign prostatic hyperplasia) no medication GERD (gastroesophageal reflux disease) Hypertension Diabetes mellitus, type 2 niddm Neurogenic claudication due to lumbar spinal stenosis Encounter for pre-operative examination Hx of essential hypertension (Chronic) Hx of gastroesophageal reflux (GERD) (Chronic) Lumbar disc herniation with radiculopathy Spinal stenosis, lumbar region, with neurogenic claudication Weakness of right lower extremity (Acute) Trochanteric bursitis of right hip Lumbar facet joint pain (Chronic) Hyperlipidemia (Chronic) Hip pain (Chronic) Knee pain (Chronic) Left Medical History Medical marijuana use Nausea and vomiting after administration of anesthetic agent Surgical History History of appendectomy History of cataract surgery History of colonoscopy S/P epidural steroid injection H/O lumbar discectomy (~05/2021) laminectomy and discectomy (Dr Anuj Holbrook) [facility] Hx of appendectomy Family History Other No family history of adverse response to anesthesia Social History Smoking Status: Former smoker Second Hand Exposure: No; Do You Dip or Chew Tobacco: No; Hx Alcohol Use: Yes Alcohol type: beer Hx Substance Use: Yes (medical marijuana) Last Used Substance Other:: daily Substance Use Type Other:: medical card Preferred Language: Omani Communication Ability: Effective Hearing Ability: Normal Hotel Maintenance Technician Required: No Beliefs That Will Affect Care: None marital status: Current Living Situation: Alone current occupational status: employed current occupation: [employer]- 2 days a week. Feels Safe at Home: Yes Safety Concerns: Feels Safe At This Time Assistive Devices: Cane Allergies Allergies Allergy/AdvReac Type Severity Reaction Status Date / Time propoxyphene Allergy Severe severe Verified 09/26/24 15:27 [From Karley] hives acetaminophen Allergy Unknown Unknown - Unverified 09/26/24 15:27 On file / [facility] methadone Allergy Unknown Unknown - Unverified 09/26/24 15:27 On file / [facility] Home Meds Home Medications Medication Instructions Recorded Confirmed aspirin 81 mg tablet,delayed 81 mg PO QAM 05/24/19 09/26/24 release (Adult Low Dose Aspirin) meloxicam 7.5 mg tablet 7.5 mg PO QAM 05/24/19 09/26/24 multivitamin 1 tab PO QAM 05/24/19 09/26/24 omeprazole 20 mg capsule,delayed 20 mg PO QAM 05/24/19 09/26/24 release Medical Thc 1 dose inhalation UD PRN Pain 02/27/22 09/26/24 benazepril 40 mg tablet 40 mg PO QAM 02/27/22 09/26/24 hydrochlorothiazide 25 mg tablet 25 mg PO QAM 02/27/22 09/26/24 pioglitazone 30 mg tablet (Actos) 30 mg PO QAM 02/27/22 09/26/24 simvastatin 10 mg tablet 10 mg PO QAM 02/27/22 09/26/24 hydrocodone 5 mg-acetaminophen 325 0 tab PO TID PRN Pain 09/26/24 09/26/24 mg tablet potassium chloride 10 mEq 10 meq PO DAILY 09/26/24 09/26/24 tablet,extended release Previous Rx's Medication Instructions Recorded tramadol 50 mg tablet 50 mg PO Q6H PRN pain, moderate 03/14/22 #30 tabs Results & Data (ED) Vital Signs Vital Signs - 24 hr 09/26/24 11:13 09/26/24 11:13 Temperature 36.6 C Temperature Source Temporal Artery Scan Pulse Rate 89 Respiratory Rate 18 Blood Pressure 206/106 H Blood Pressure Mean 139 Pulse Oximetry 92 Oxygen Delivery Method Room Air Room Air Sepsis Recent Fever Within 48 Hours No Sepsis New/Unexplained Change in Mental Status N/A Sepsis Action Taken by Nursing No Action Required Home Medications Current Medication List: was personally reviewed by me Laboratory Data Attestation: I reviewed the patient's lab results. 09/27/24 05:31 09/27/24 05:31 Lab Results 09/26/24 09/26/24 Range/Units 11:38 13:40 WBC 6.18 (4.8-10.8) K/ul RBC 4.83 (4.70-6.10) M/uL Hgb 15.2 (14.0-18.0) g/dl Hct 44.0 (42.0-52.0) % MCV 91.1 (80.0-100.0) fL MCH 31.5 (25.0-34.0) pg MCHC 34.5 (32.0-36.0) g/dL RDW Std Deviation 44.0 (36.4-46.3) fL RDW Coeff of Arslan 13.1 (11.5-14.5) % Plt Count 174 (130-400) K/uL MPV 12.0 (9.4-12.4) fL Immature Gran % (Auto) 0.3 % Neut % (Auto) 84.1 % Lymph % (Auto) 5.7 % [place] % (Auto) 9.1 % Eos % (Auto) 0.5 % Baso % (Auto) 0.3 % Neut # (Auto) 5.20 (1.40-6.50) K/uL Lymph # (Auto) 0.35 L (1.20-3.40) K/uL [place] # (Auto) 0.56 (0.11-0.59) K/uL Eos # (Auto) 0.03 (0.00-0.50) K/uL Baso # (Auto) 0.02 (0.00-0.20) K/uL Immature Gran # (Auto) 0.02 (0.01-0.20) K/uL PT 12.0 (9.0-12.0) Seconds INR 1.1 (0.9-1.1) APTT 27 (21-31) Seconds PTT Ratio 1.0 Sodium 139 (136-145) mmol/L Potassium 3.9 (3.5-5.1) mmol/L Chloride 104 (98-107) mmol/L Carbon Dioxide 29 (21-32) mmol/L Anion Gap 6 (3-11) BUN 20 (6-23) mg/dl Creatinine 1.09 (0.6-1.4) mg/dl Est Cr Clr Drug Dosing 78.9 ml/min eGFR 72.11 BUN/Creatinine Ratio 18.3 (10-20) Glucose 183 H (70-99(Fasting)) mg/dl Calcium 10.3 (8.6-10.3) mg/dl Total Bilirubin 0.7 (0.2-1.0) mg/dl AST 21 (13-39) U/L ALT 21 (7-52) U/L Alkaline Phosphatase 64 (34-104) U/L Troponin I High Sens 14.2 17.1 (0-20) pg/ml Total Protein 7.2 (6.0-8.3) gm/dl Albumin 4.6 (3.4-5.0) gm/dl Globulin 2.6 (2.5-4.0) gm/dl Albumin/Globulin Ratio 1.8 (0.9-2) Lyme Disease Screen Negative (Negative) Administered Medications Hydrocodone Bitart/Acetaminophen (Hydrocodone/Acetamophen 5/325mg Tab) 1 tab PO TID PRN PRN Reason: Pain Stop: 10/10/24 20:25 Last Admin: 09/27/24 14:17 Dose: 1 tab Documented By: Admin: 09/27/24 04:32 Dose: 1 tab Documented By: BEV Amlodipine Besylate (Amlodipine Besylate 5 Mg Tab) 5 mg PO [facility] Stop: 10/27/24 08:59 Last Admin: 09/27/24 08:52 Dose: 5 mg Documented By: CONNIE Aspirin (Aspirin 81 Mg Ectab) 81 mg PO [facility] Stop: 10/27/24 08:59 Last Admin: 09/27/24 08:57 Dose: 81 mg Documented By: CONNIE Enalapril Maleate (Enalapril Maleate 10 Mg Tab) 20 mg PO BID [facility] Stop: 10/27/24 14:14 Last Admin: 09/27/24 14:38 Dose: 20 mg Documented By: CONNIE Hydrochlorothiazide (Hydrochlorothiazide 25 Mg Tab) [facility] [place]: 10/27/24 08:59 Last Admin: 09/27/24 08:52 Dose: 25 mg Documented By: CONNIE Insulin Aspart (Insulin Aspart Per Unit Charge) 0 units SC [facility] Stop: 10/26/24 16:29 Last Admin: 09/27/24 13:07 Dose: Not Given Documented By: Admin: 09/27/24 08:50 Dose: Not Given Documented By: Admin: 09/26/24 21:51 Dose: 1 units Documented By: BEV Co-signed By: TESSA Admin: 09/26/24 16:54 Dose: Not Given Documented By: CONNIE Insulin Glargine (Lantus Per Unit Charge) 8 [facility] [place] [facility] [place]: 10/27/24 08:59 Last Admin: 09/27/24 08:50 Dose: Not Given Documented By: CONNIE Multivitamins (Multivitamin Tab) 1 tab PO QAM [facility]E Stop: 10/27/24 08:59 Last Admin: 09/27/24 08:57 Dose: 1 tab Documented By: CONNIE Pantoprazole Sodium (Pantoprazole 40 Mg Tab) 40 mg PO QAM NOE Stop: 10/27/24 08:59 Last Admin: 09/27/24 08:57 Dose: 40 mg Documented By: CONNIE Potassium Chloride (Potassium Chloride 10 Meq Tabcr) 10 meq PO DAILY [facility] Stop: 10/27/24 08:59 Last Admin: 09/27/24 08:57 Dose: 10 meq Documented By: CONNIE Rosuvastatin Calcium (Rosuvastatin Calcium 20 Mg Tab) [facility] [place]: 10/27/24 08:59 Last Admin: 09/27/24 08:57 Dose: 20 mg Documented By: CONNIE Discontinued Medications Amlodipine Besylate (Amlodipine Besylate 5 Mg Tab) 5 mg PO NOW ONE Stop: 09/26/24 15:01 Last Admin: 09/26/24 15:10 Dose: 5 mg Documented By: MECHE Carvedilol (Carvedilol 6.25 Mg Tab) 6.25 mg PO BIDM NOE Stop: 10/26/24 16:59 Last Admin: 09/27/24 08:51 Dose: 6.25 mg Documented By: Admin: 09/26/24 16:40 Dose: 6.25 mg Documented By: CONNIE Enalapril Maleate (Enalapril Maleate 10 Mg Tab) 20 mg PO QAM NOE Stop: 10/27/24 08:59 Last Admin: 09/27/24 08:53 Dose: 20 mg Documented By: CONNIE Labetalol HCl (Labetalol Hcl Iv 5 Mg/Ml 20ml) 10 mg IV NOW STA Stop: 09/26/24 13:28 Last Admin: 09/26/24 13:43 Dose: 10 mg Documented By: MECHE Regadenoson (Regadenoson 0.4 Mg/5 Ml Syr) Confirm Administered Dose 0.4 mg IV .STK-MED ONE Stop: 09/27/24 09:52 Last Admin: 09/27/24 14:08 Dose: Not Given Documented By: CONNIE Imaging Data Radiologist's Impression: Chest X-Ray 09/26/24 11:21 XR chest 1V not portable CLINICAL HISTORY: Chest pain, nonspecific COMPARISON STUDY: 02/20/2022 FINDINGS: Single view chest is unchanged. No acute cardiopulmonary process identified. There is no airspace opacity or pleural effusion. Some chronic fibrotic change at the cardiac apex. There is no pneumothorax or significant atelectasis. Heart size remains slightly increased with normal pulmonary vascularity. IMPRESSION: Stable exam; no acute process identified ACT 112: Negative or not required by law. Electronically signed by: Dina Stokes M.D. 09/26/2024 12:22 PM Discharge Plan Visit Data Chief Complaint: Cardiac Assessment Stated Complaint: HYPERTENSION, HEART BURN, ARM SENS, NAUSEA ED Provider: Curtis Rodriguez Discharge Problem: Hypertensive urgency, Chest pain, Fatigue due to excessive exertion Patient Disposition: Admitted As Inpatient Discharge Instructions Interventions: ED Discharge Assessment Last Done: 09/26/24 15:56 Discharge Problem: Chest pain Qualifiers: Chest pain type: unspecified Qualified Code(s): R07.9 - Chest pain, unspecified Fatigue due to excessive exertion Qualifiers: Encounter type: initial encounter Qualified Code(s): T73.3XXA - Exhaustion due to excessive exertion, initial encounter
[2024-09-26] MEDS: LABETALOL HCL IV 5 MG/ML 20ML IV STA (13:43)
[2024-09-26] MEDS ORDERED: hydrALAZINE HCL 20 MG/ML VIAL IV PRN (14:09)
[2024-09-26] MEDS ORDERED: CARBOHYDRATES FOR HYPOGLYCEMIA PO PRN (14:09)
[2024-09-26] MEDS ORDERED: GLUCAGON FOR INJ 1 MG VIAL SQ PRN (14:09)
[2024-09-26] MEDS ORDERED: DEXTROSE 50% 50 ML SYRINGE IV PRN (14:09)
[2024-09-26] MEDS ORDERED: GLUCOSE 10 TAB/TUBE PO PRN (14:09)
[2024-09-26] MEDS ORDERED: GLUCOSE 40% GEL 15 GM TUBE PO PRN (14:09)
--- NOTE | 2024-09-26 15:05 | History & Physical Report ---
Date of Service September 26, 2024 Assessment & Plan (1) Chest pain: (2) Hypertensive urgency: Plan: 74-year-old male with history of diabetes type 2, hypertension, GERD, BPH, chronic low back pain with right-sided sciatica, presenting with burning sensation on the chest, fatigue since . Chest pain rule out acute coronary syndrome Hypertensive urgency Risk factors for coronary disease: Family history- (+)CAD mother and brother, diabetes type 2, hypertension Troponin x 2 negative, third set pending EKG no acute signs of ischemia or infarct Echocardiogram ordered Continue usual aspirin 81 mg p.o. daily and simvastatin Cardiology consult Add amlodipine 5 mg daily to usual benazepril 40 mg plus HCTZ 12.5 mg monitor BP closely Diabetes type 2 Lantus 8 units in the morning Insulin sliding scale Check A1c Rash on Right lower leg Check for Lyme screen Left lower extremity edema Doppler ultrasound to rule out DVT Other chronic medical problems: GERD-continue omeprazole BPH chronic low back pain on hydrocodone History of Present Illness Chief Complaint: Burning sensation in the chest since Primary Care Provider: Luisito Gong DO 74-year-old male with history of diabetes type 2, hypertension, GERD, BPH, chronic low back pain with right-sided sciatica, presenting with burning sensation on the chest, fatigue since . Patient states that he was working in his basement last when he noted burning sensation all over his chest associated with some dizziness and clammy skin, prompting him to go upstairs and at rest. This episode also happened 2 weeks ago. He has also been noticing fatigue with minimal exertion since that time. Upon arrival to the ER, blood pressure 206/106, heart rate 89, respiratory rate 18, temperature afebrile, 92% on room air. EKG no signs of ischemia or infarct Troponin x 2 negative Chest x-ray: No acute process Positive chronic fibrotic change at the cardiac apex, heart size remains slightly increased compared to 2021 He was given labetalol 10 mg IV which improved his blood pressure to 174/93. On exam, patient states he feels somewhat weak but denies active chest pain, shortness of breath, palpitations, dizziness, nausea. Allergies Allergy/AdvReac Type Severity Reaction Status Date / Time propoxyphene Allergy Severe severe Verified 03/13/22 06:23 [From Darvocet-N] hives Home Medications Medication Instructions Recorded Confirmed Type aspirin 81 mg tablet,delayed 81 mg PO QAM 05/24/19 03/13/22 History release (Adult Low Dose Aspirin) meloxicam 7.5 mg tablet 7.5 mg PO QAM 05/24/19 03/13/22 History multivitamin 1 tab PO QAM 05/24/19 03/13/22 History omeprazole 20 mg capsule,delayed 20 mg PO QAM 05/24/19 03/13/22 History release Medical Thc 1 dose inhalation UD PRN Pain 02/27/22 03/13/22 History acetaminophen 500 mg tablet 1,000 - 2,000 mg PO TID PRN Pain 02/27/22 03/13/22 History benazepril 40 mg tablet 40 mg PO QAM 02/27/22 03/13/22 History hydrochlorothiazide 25 mg tablet 25 mg PO QAM 02/27/22 03/13/22 History pioglitazone 30 mg tablet (Actos) 30 mg PO QAM 02/27/22 03/13/22 History potassium 99 mg tablet 99 mg PO QAM 02/27/22 03/13/22 History simvastatin 10 mg tablet 10 mg PO QAM 02/27/22 03/13/22 History oxycodone 5 mg tablet 5 mg PO Q6H PRN pain, severe #30 03/14/22 Rx tabs tramadol 50 mg tablet 50 mg PO Q6H PRN pain, moderate 03/14/22 Rx #30 tabs Past Med/Surg History Problem List (Updated 09/26/24 @ 15:00 by Jatin Pittman MD) Hypertensive urgency Chest pain Osteoarthritis of knees, bilateral BPH (benign prostatic hyperplasia) no medication GERD (gastroesophageal reflux disease) Hypertension Diabetes mellitus, type 2 niddm Neurogenic claudication due to lumbar spinal stenosis Encounter for pre-operative examination Hx of essential hypertension (Chronic) Hx of gastroesophageal reflux (GERD) (Chronic) Lumbar disc herniation with radiculopathy Spinal stenosis, lumbar region, with neurogenic claudication Weakness of right lower extremity (Acute) Trochanteric bursitis of right hip Lumbar facet joint pain (Chronic) Hyperlipidemia (Chronic) Hip pain (Chronic) Knee pain (Chronic) Left Medical History (Updated 09/26/24 @ 15:00 by Jatin Pittman MD) Medical marijuana use Nausea and vomiting after administration of anesthetic agent Surgical History History of appendectomy History of cataract surgery History of colonoscopy S/P epidural steroid injection H/O lumbar discectomy (~05/2021) laminectomy and discectomy (Dr Anuj Holbrook) [facility] Hx of appendectomy Family History Other No family history of adverse response to anesthesia Social History Smoking Status: Former smoker Second Hand Exposure: No; Do You Dip or Chew Tobacco: No; Hx Alcohol Use: Yes Alcohol type: beer Hx Substance Use: Yes (medical marijuana) Last Used Substance Other:: daily Preferred Language: Ugandan Communication Ability: Effective Hearing Ability: Normal Avian Keeper Required: No Beliefs That Will Affect Care: None marital status: Current Living Situation: Alone current occupational status: employed current occupation: [employer]- 2 days a week. Feels Safe at Home: Yes Assistive Devices: None Review of Systems Review of Systems: all noted and negative except for above Physical Exam Physical Exam: General- oriented x 3, not in distress, speaks in sentences with no effort or accessory muscle use Head- atraumatic Eyes- PERRL, EOMI, anicteric ENT- oropharynx clear Neck- supple, no JVD, no adenopathy, no thyromegaly; carotids +2/2, no bruits appreciated Lungs- clear to auscultation bilaterally, no rales/wheezes Heart- normal rate, regular rhythm; no murmur, no gallop, no rub appreciated Abdomen- normal bowel sounds, nondistended, soft, nontender, no masses or hepatosplenomegaly Extremities- no pretibial edema, no calf tenderness; peripheral pulses intact Neuro- alert, oriented x 3; CN 2-12 grossly intact; motor 5/5 bilaterally;sensation 100% on all extremities; no other gross focal neurologic deficits Skin- warm & dry Results & Data Results & Data Vital Signs (Past 12 Hours) Vital Signs Temp Pulse Pulse Resp BP BP Pulse Ox 09/26/24 13:58 66 174/93 H 09/26/24 13:56 70 09/26/24 13:43 73 176/119 H 09/26/24 13:20 80 22 96 09/26/24 13:20 96 09/26/24 13:20 71 22 178/115 H 97 09/26/24 11:13 09/26/24 11:13 36.6 C 89 18 206/106 H 92 O2 Del Method 09/26/24 13:58 09/26/24 13:56 09/26/24 13:43 09/26/24 13:20 Room Air 09/26/24 13:20 Room Air 09/26/24 13:20 Room Air 09/26/24 11:13 Room Air 09/26/24 11:13 Room Air all noted and reviewed including below Code Status & VTE Plan VTE Prophylaxis Plan VTE Prophylaxis will be ordered: Yes
[2024-09-26] MEDS: amLODIPine BESYLATE 5 MG TAB PO ONE (15:10)
--- NOTE | 2024-09-26 15:26 | Cardiology Consultation ---
Date of Consultation September 26, 2024 Assessment & Plan (1) Chest pain: (2) Uncontrolled hypertension: (3) Hypertensive urgency: (4) HTN, goal below 130/80: (5) Dyslipidemia, goal LDL below 70: Plan 74-year-old male presenting to [facility] on September 26, 2024 with chest discomfort. Patient with multiple cardiac risk factors including hypertension, dyslipidemia, type 2 diabetes mellitus, past tobacco use, physical inactivity/obesity, family history of ischemic heart disease. Blood pressure markedly elevated on presentation, 206/106. EKG without acute change. High-sensitivity troponin negative x 2. Resting echocardiography pending. Chest x-ray without acute cardiopulmonary process. Recommendations: * Serial high sensitivity troponin's * Resting echocardiography * Add carvedilol 6.25 mg twice a day * Continue Aspirin 81 mg/day * Change simvastatin 10 mg/day to rosuvastatin 20 mg/day, LDL goal less than 55 mg/dL * Continue ACEInhibitor (benazepril) * May need to switch HCTZ and potassium to furosemide and spironolactone * Discontinue meloxicam and Pioglitazone * Continuous telemetry monitoring * NPO after midnight for Lexiscan versus diagnostic cardiac catheterization as discussed. Supervising Physician Co-Signing Physician Notes Attending attestation: Case reviewed with the advanced practitioner. I have personally performed a history and physical examination on the patient. I have reviewed the advanced practitioner's documentation on the date of service referenced in note, and I agree with, and take responsibility for the plan of care. Subjective: Patient seen upon arrival to the PCU, room 209. Notes that he had a sensation of a fullness of the back of his neck and headache today. Has had recent episodes with exertion that felt like "heartburn". Initial blood pressure on arrival today was 206/106, improved down to 162/87 thus far. States that he had been admitted to an outside hospital a few years ago and observed for high blood pressure. Exam: Cardiovascular: Regular rhythm no murmurs, no edema Data: Transthoracic echocardiogram performed today and interpreted independently revealed normal left ventricular wall motion and normal LVEF without significant valvular heart disease. Impression/ Plan: Hypertensive urgency Recent symptoms suggestive of exertional angina -Observe on telemetry -Trend serial troponin level -Add carvedilol 6. 2 5 mg twice daily, change simvastatin to rosuvastatin. Continue pantoprazole. -Pioglitazone and meloxicam discontinued N.p.o. after midnight for pharmacologic stress testing versus coronary angiography depending upon how patient's hospitalization develops. I spent a total of 20minutes coordinating, documenting, and providing care for this patient excluding time spent in the performance of separately billed services or time spent by another provider. Anuj Caba DO History of Present Illness Reason for Consultation: Chest pain Requesting Physician: Dr. Jatin Pittman MD Attending Physician: Dr. Jatin Pittman MD History of Present Illness Mr. Conner Batista is a 74-year-old male who is being seen at the request of Dr. Pittman. Reason for consultation is chest discomfort. Patient describes feeling off over the last couple weeks. He describes experiencing an episode of chest discomfort that felt like bad heartburn while working in his basement a couple of weeks ago. He also notes feeling out of energy and sleeping all the time. This past he was once again working in the basement putting hydraulic cement on the [employer] when he experienced another episode of chest discomfort described as "super bad heartburn" associated with feeling clammy and also associated with a headache. This seemed to last all weekend long. He notes feeling and knowing his blood pressure was elevated due to having half a headache and feeling queasy in the stomach. No emesis. Patient notes experiencing symptoms similar to this in the past though not as severe, typically only occurring when participating in online sim racing, when pedaling intensely. Today, he called his family physician to inform him of the above and was advised to report to the emergency room for further evaluation. Blood pressure on initial presentation was 206/106 EKG was without acute change, revealing normal sinus rhythm at 86 bpm. High-sensitivity troponin within normal range as follows: 14.2 -> 17.1 pg/mL Chest x-ray without acute cardiopulmonary findings ER telemetry revealed sinus rhythm with occasional atrial ectopy only. No atrial fibrillation. No ventricular arrhythmias. Past Medical and Surgical History: Patient denies prior cardiac history. He specifically denies history of CAD, ND, CHF, arrhythmia, heart murmur, rheumatic fever, or scarlet fever. 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 Father was killed in an car accident when the patient was 13. Brother suffered an ND a couple years ago, 2 years older. Sister passed with ovarian cancer. Social History: Reformed smoker having started in his teens and quitting at the age of 35. Alcohol: 4-6 beers 1-2 nights per week. Medical marijuana card. No smokeless tobacco. . Lives alone in [place], [place]. Daughter in [facility] Allergies Allergy/AdvReac Type Severity Reaction Status Date / Time propoxyphene Allergy Severe severe Verified 09/26/24 15:27 [From Karley] hives acetaminophen Allergy Unknown Unknown - Unverified 09/26/24 15:27 On file / [facility] methadone Allergy Unknown Unknown - Unverified 09/26/24 15:27 On file / [facility] Home Medications Medication Instructions Recorded Confirmed Type aspirin 81 mg tablet,delayed 81 mg PO QAM 05/24/19 09/26/24 History release (Adult Low Dose Aspirin) meloxicam 7.5 mg tablet 7.5 mg PO QAM 05/24/19 09/26/24 History multivitamin 1 tab PO QAM 05/24/19 09/26/24 History omeprazole 20 mg capsule,delayed 20 mg PO QAM 05/24/19 09/26/24 History release Medical Thc 1 dose inhalation UD PRN Pain 02/27/22 09/26/24 History benazepril 40 mg tablet 40 mg PO QAM 02/27/22 09/26/24 History hydrochlorothiazide 25 mg tablet 25 mg PO QAM 02/27/22 09/26/24 History pioglitazone 30 mg tablet (Actos) 30 mg PO QAM 02/27/22 09/26/24 History simvastatin 10 mg tablet 10 mg PO QAM 02/27/22 09/26/24 History tramadol 50 mg tablet 50 mg PO Q6H PRN pain, moderate 03/14/22 09/26/24 Rx #30 tabs hydrocodone 5 mg-acetaminophen 325 0 tab PO TID PRN Pain 09/26/24 09/26/24 History mg tablet Patient History Medical History Medical marijuana use Nausea and vomiting after administration of anesthetic agent Surgical History History of appendectomy History of cataract surgery History of colonoscopy S/P epidural steroid injection H/O lumbar discectomy (~05/2021) laminectomy and discectomy (Dr Anuj Holbrook) [facility] [place] Hx of appendectomy Family History Other No family history of adverse response to anesthesia Social History Smoking Status: Former smoker Second Hand Exposure: No; Do You Dip or Chew Tobacco: No; Hx Alcohol Use: Yes Alcohol type: beer Hx Substance Use: Yes (medical marijuana) Last Used Substance Other:: daily Preferred Language: Namibian Communication Ability: Effective Hearing Ability: Normal Supervisor [employer] Required: No Beliefs That Will Affect Care: None marital status: Current Living Situation: Alone current occupational status: employed current occupation: [employer]- 2 days a week. Feels Safe at Home: Yes Assistive Devices: None Review of Systems Review of Systems: Complete Review of Systems: Constitutional: No recent illnesses/colds. No fevers, chills, or night sweats. No recent injury. No recent travel. No recent surgery. HEENT: Bilateral cataract s/p extraction. Floaters. Detached retina on the left, repair x 2. No macular degeneration. No glaucoma. Pulmonary: Denies history of asthma, emphysema, COPD, or PE Cardiac: See above. GI/Abd: Some dysphagia. GERD, on omeprazole. No melana or hematochezia. No kidney problems. No liver problems. No history of pancreatic issues. Vascular: No history of carotid artery disease, AAA, or lower extremity claudication/PAD. Hematologic: No coagulation disorder, anemia, or abnormal bleeding. Musculoskeletal: See above. Skin: No rash. Neurologic: No history of TIA/CVA, or seizure disorder. Male : See above. Endocrine: Type II diabetes mellitus. No thyroid trouble. Complete Review of Systems is as stated above, negative, or noncontributory Physical Exam Physical Exam: General: Alert and oriented x 3. No acute distress. Pleasant. Comfortable. Cooperative. Skin: 1-2 cm lesion on the left cheek HENT: Normocephalic. Atraumatic. Eyes: PER. Conjunctiva pink, sclera clear. Neck: No carotid bruits. No JVD. Heart: Somewhat distant heart sounds. Regular, 80 bpm. No murmur. Lungs: Clear to auscultation. Abdomen: +BS. Soft. Nontender. No masses or organomegaly. Extremities: 1-2+ pretibial edema. No clubbing. No cyanosis. Limited neurological examination is without focal deficits. Pulses: radial=2/4, posterior tibial=1/4. Results & Data Vital Signs (Past 12 Hours) Vital Signs Temp Pulse Pulse Resp BP BP Pulse Ox 09/26/24 15:00 78 18 186/124 H 98 09/26/24 13:58 66 174/93 H 09/26/24 13:56 70 09/26/24 13:43 73 176/119 H 09/26/24 13:20 80 22 96 09/26/24 13:20 96 09/26/24 13:20 71 22 178/115 H 97 09/26/24 11:13 09/26/24 11:13 36.6 C 89 18 206/106 H 92 O2 Del Method 09/26/24 15:00 Room Air 09/26/24 13:58 09/26/24 13:56 09/26/24 13:43 09/26/24 13:20 Room Air 09/26/24 13:20 Room Air 09/26/24 13:20 Room Air 09/26/24 11:13 Room Air 09/26/24 11:13 Room Air Laboratory Results Cardiac Enzymes 09/26/24 09/26/24 Range/Units 11:38 13:40 AST 21 (13-39) U/L Troponin I High Sens 14.2 17.1 (0-20) pg/ml Coagulation 09/26/24 Range/Units 11:38 PT 12.0 (9.0-12.0) Seconds APTT 27 (21-31) Seconds CBC 09/26/24 Range/Units 11:38 WBC 6.18 (4.8-10.8) K/ul RBC 4.83 (4.70-6.10) M/uL Hgb 15.2 (14.0-18.0) g/dl Hct 44.0 (42.0-52.0) % Plt Count 174 (130-400) K/uL Neut # (Auto) 5.20 (1.40-6.50) K/uL Lymph # (Auto) 0.35 L (1.20-3.40) K/uL [place] # (Auto) 0.56 (0.11-0.59) K/uL Eos # (Auto) 0.03 (0.00-0.50) K/uL Baso # (Auto) 0.02 (0.00-0.20) K/uL Comprehensive Metabolic Panel 09/26/24 Range/Units 11:38 Sodium 139 (136-145) mmol/L Potassium 3.9 (3.5-5.1) mmol/L Chloride 104 (98-107) mmol/L Carbon Dioxide 29 (21-32) mmol/L BUN 20 (6-23) mg/dl Creatinine 1.09 (0.6-1.4) mg/dl Glucose 183 H (70-99(Fasting)) mg/dl Calcium 10.3 (8.6-10.3) mg/dl AST 21 (13-39) U/L ALT 21 (7-52) U/L Alkaline Phosphatase 64 (34-104) U/L Total Protein 7.2 (6.0-8.3) gm/dl Albumin 4.6 (3.4-5.0) gm/dl Intake and Output 09/26/24 09/26/24 09/26/24 06:59 14:59 22:59 Other: Weight 111.2 kg Weight Measurement Method Chair Scale Patient Weight 09/27/24 06:59 Weight 111.2 kg
[2024-09-26] MEDS ORDERED: ACETAMINOPHEN 325 MG TAB PO PRN (15:30)
--- NOTE | 2024-09-26 16:24 | Ultrasound Report ---
EXAM: US Duplex Left Lower Extremity Veins INDICATION: Swelling TECHNIQUE: Real-time duplex ultrasound scan of the left lower extremity veins integrating B-mode two-dimensional vascular structure, Doppler spectral analysis, color flow Doppler imaging and compression. COMPARISON: No relevant prior studies available. FINDINGS: Deep veins: No DVT in the visualized common femoral, femoral or popliteal veins. The veins demonstrate normal color flow, are normally compressible, with normal phasic flow and/or augmentation response. Superficial veins: No abnormality noted. No thrombus in the visualized great saphenous vein. Soft tissues: There is a complex 7.2 x 2.1 x 4.2 cm x complex Virgen's cyst. IMPRESSION: 1. No deep venous thrombosis of the left lower extremity. 2. There is a complex 7.2 x 2.1 x 4.2 cm x complex Virgen's cyst. ACT 112: N/A Electronically signed by Susan Garner 09-26-2024 4:23 PM
[2024-09-26] MEDS: carvediloL 6.25 MG TAB PO SCH (16:40)
--- OUTSIDE RECORDS SUMMARY | 2024-09-26 16:42 | External Medical Summary | Summary of Care ---
Author Name Unknown Organization [facility] Address [address] [place] [address] Phone [phone] Care Team Providers Care Active Directory Administrator Name Role Phone Pooja Avila Primary Care Provider [phone]- [phone] Reason for Visit * Reason Onset Date Comments Health Maintenance 08/26/2024 Encounter Details Date Type Department Care Team (Late st Contact Info) Description 08/26/2024 Telephone Family Practice [facility] [address] [place] [address] Pooja Avila CRNP [address] [place] [address] Health Maintenance Allergies Active Allergy Reactions Criticality Noted Date Comments Propoxyphene Rash 10/08/2022 documented as of this encounter (statuses as of 08/26/2024) Medications Omeprazole 20 MG Oral Capsule Delayed Release (PriLOSEC) Take 1 Capsule by mouth daily. Active Multi-Vitamin Oral Tablet take 1 tablet by oral route every day with food Active Potassium Chloride ER 10 MEQ Oral Tablet Extended Release Take by mouth. Active Simvastatin 10 MG Oral Tablet (Zocor) Take by mouth daily. Active Aspirin 81 MG Oral Tablet Delayed Release Take by mouth daily. Active Acetaminophen 325 MG Oral Tablet (Tylenol) Active Magnesium 200 MG Oral Tablet Take 1 Tablet by mouth in the morning. Active hydroCHLOROthia zide 12.5 MG Oral Capsule Take 2 Capsules by mouth in the morning. 180 Capsule 3 10/29/2023 Active Benazepril HCl 40 MG Oral Tablet Take 1 Tablet by mouth daily. 90 Tablet 3 10/29/2023 Active Pioglitazone HCl 30 MG Oral Tablet (Actos) Take 1 Tablet by mouth daily. 90 Tablet 3 10/29/2023 Active Meloxicam 7.5 MG Oral Tablet (Mobic) TAKE ONE TABLET BY MOUTH ONCE DAILY 90 Tablet 1 07/18/2024 Active documented as of this encounter (statuses as of 08/26/2024) Active Problems Problem Noted Date Diagnosed Date Chronic bilateral low back pain with right-sided sciatica 10/23/2023 Opioid use 10/23/2023 Chronic pain syndrome 10/23/2023 Type 2 diabetes mellitus wit h hemoglobin A1c goal of less than 8.0% 10/08/2022 HTN, goal below 140/90 10/08/2022 Obesity, Class I, BMI 30.0-34.9 (see actual BMI) 10/08/2022 Dyslipidemia, goal LDL below 130 10/08/2022 Gastroesophageal reflux disease without esophagi tis 10/08/2022 Leg cramp 10/08/2022 Pruritic dermatitis 10/08/2022 Jock itch 10/08/2022 Diabetic peripheral neuropathy 10/08/2022 BPH with obstruction/lower urinary tract symptom s 10/08/2022 Medical marijuana use 10/08/2022 documented as of this encounter (statuses as of 08/26/2024) Immunizations Name Administration Dates Next Due Pneumococcal Conjugate Vaccine, 20-valent (Prevn ar20) 06/02/2024 Seasonal Influenza, High Dos e, Trivalent, PF, IM (Fluzone HD) 06/02/2024 Seasonal Influenza, Quadrivalent Hd (Fluzone Hd) 05/05/2023 documented as of this encounter Social History Tobacco Use Types Packs/Day Years Used Date Smoking Tobacco: Former Cigarettes 08 10 1 963 - 1984 Smokeless Tobacco: Never Alcohol Use Standard Drinks/Week Comments Yes 0 (1 standard drink = 0.6 oz pur e alcohol) social PHQ-2 Answer Date Recorded PHQ Adult Total Score 0 05/09/2024 Utilities Answer Date Recorded Do you have trouble paying y our heating, water, or electric bill? (Adult - for ages 18 years and over) Not on file 01/05/2024 Is your family able to pay t he heat, water, or electric bill? (Household - for ages 0-17 years) Not on file 01/05/2024 Does your family have access to good internet? (Household - for ages 0-17 years) Not on file 01/05/2024 Social Connections Answer Date Recorded How often do you feel lonely or isolated from those around you? (Adult - for ages 18 years and over) Not on file 01/05/2024 Sex and Gender Information Value Date Recorded Sex Assigned at Not on file Legal Sex Male 5:28 AM EST Gender Identity Not on file Sexual Orientation Not on file documented as of this encounter Miscellaneous Notes * Telephone Encounter - Janet Jorge LPN - 08/26/2024 9:38 AM EST Care Gaps Comprehensive Care Outreach Last Office/Telemedicine Visit: 05/09/2024 (in office), Visit date not found (telemedicine) Next Office Visit: 11/07/2024 Hemoglobin AIC Results: Lab Results Component Value Date/Time HEMOGLOBIN A1C - [facility] 6.0 (H) 05/09/2024 09:45 AM HEMOGLOBIN A1C - [facility] 5.6 10/23/2023 09:46 AM HEMOGLOBIN A1C - [facility] 5.6 05/05/2023 10:42 AM BP Readings from Last 1 Encounters: 05/09/24 132/74 Reviewed Health Maintenance below: Health Maintenance Topic Date Due DTap/Tdap Vaccines (1 - Tdap) Never done Zoster Vaccines (1 of 2) Never done Hepatitis B Vaccine (1 of 3 - Risk 3-dose series) Never done Adult Wellness Visit Never done Diabetic Eye Exam 02/20/2024 COVID-19 Vaccine ( season) 2024 Colorectal Cancer Screening 09/19/2024 HbA1c 11/07/2024 Lab October already ordered Colon september cologuard was positive last [facility] will request Eye [facility] [place] [facility] Care Gap Outreach Action Taken: Spoke to patient documented in this encounter Plan of Treatment Upcoming Encounters Date Type Department Care Team (Late st Contact Info) Description 11/07/2024 8:20 AM EDT Office Visit [facility] [address] [place] [address] Pooja Avila CRNP [address] [place] [address] 05/11/2025 8:00 AM EDT Office Visit [facility] [address] [place] [address] Luisito Gong, [address] [place] [address] Health Maintenance Due Date Last Done Comments DTap/Tdap Vaccines (1 - Tdap) 02/27/1971 Colonoscopy 02/27/1997 Fecal Occult Blood Test 02/27/1997 Sigmoidoscopy 02/27/1997 Zoster Vaccines (1 of 2) 02/27/2002 Hepatitis B Vaccine (1 of 3 - Risk 3-dose series) 2012 Adult Wellness Visit 02/27/2018 Diabetic Eye Exam 02/20/2024 02/19/2023, , 10/03/2022, Additional history exists COVID-19 Vaccine ( season) 2024 05/14/2021, 10/03/2020, 09/12/2020 Cologuard 09/19/2024 09/19/2021, 09/12/2021 Colorectal Cancer Screening 09/19/2024 HbA1c 11/07/2024 05/09/2024, 04/0 11/2023, 05/05/2023, Additional history exists Albumin/Creatinine Ratio 05/09/2025 024, 05/05/2023, 10/08/2022 Depression Screening 05/09/2025 05/09/2024 Diabetic Foot Exam 05/09/2025 05/09/2024, 05/05/2023 GFR 05/09/2025 05/09/2024, 04/19, 10/08/2022 Lipid Panel 05/05/2028 05/05/2023, 10/08/2022 AAA Screening Completed 11/04/2022 Influenza Vaccine (FLU shot) Completed 06/02/2024, 05/05/2023, 05/05/2023, Additional history exists Pneumococcal Vaccine: 50+ Years Completed 06/02/2024 HPV (Gardasil) Vaccine Aged Out No lo nger eligible based on patient's age to complete this topic Hepatitis C Screening Discontinued MENINGOCOCCAL (MENACTRA/MENVEO) Aged Out No longer eligible based on patient's age to complete this topic documented as of this encounter Medical Devices Not on filedocumented as of this encounter Care Teams Active Directory Administrator Relationship Specialty Start Date End Date Pooja Avila CRNP [address] [place] [id number] PCP - General Nurse Practitioner 02/01/24 documented as of this encounter
--- OUTSIDE RECORDS SUMMARY | 2024-09-26 16:42 | External Medical Summary | Summary of Care ---
Author Name Unknown Organization [facility] Address [address] [place] [address] Phone [phone] Care Team Providers Care Complaint Investigations Officer Name Role Phone Pooja Avila Primary Care Provider +1- [phone] Encounter Details Date Type Department Care Team (Late st Contact Info) Description 08/30/2024 Orders Only Family Practice [facility] [address] [place] [address] Pooja Avila CRNP [address] [facility] [place] [address] Allergies Active Allergy Reactions Criticality Noted Date Comments Propoxyphene Rash 10/08/2022 documented as of this encounter (statuses as of 08/30/2024) Medications Omeprazole 20 MG Oral Capsule Delayed [...] as of this encounter (statuses as of 08/30/2024) Active Problems Problem Noted Date Diagnosed Date [...] as of this encounter (statuses as of 08/30/2024) Immunizations Name Administration Dates Next Due Pneumococcal [...] on file documented as of this encounter Plan of Treatment Upcoming Encounters Date Type Department Care Team (Late st Contact Info) Description 11/07/2024 8:20 AM EDT Office Visit [facility] [address] [place] [phone] Pooja Avila CRNP [address] [place] [address] 05/11/2025 8:00 AM EDT Office Visit [facility] [address] [place] [address] Luisito Gong DO [address] [place] [address] Health Maintenance Due Date Last Done Comments DTap/Tdap Vaccines (1 - Tdap) 02/27/1971 Fecal Occult Blood Test 02/27/1997 Sigmoidoscopy 02/27/1997 Zoster Vaccines (1 of 2) 02/27/2002 Hepatitis B Vaccine (1 of 3 - Risk 3-dose series) 2012 Adult Wellness Visit 02/27/2018 Diabetic Eye Exam 02/20/2024 02/19/2023, , 10/03/2022, Additional history exists COVID-19 Vaccine ( season) 2024 05/14/2021, 10/03/2020, 09/12/2020 Cologuard 09/19/2024 09/19/2021, 09/12/2021 HbA1c 11/07/2024 05/09/2024, 04/0 11/2023, 05/05/2023, Additional history exists Albumin/Creatinine Ratio 05/09/2025 024, 05/05/2023, 10/08/2022 Depression Screening 05/09/2025 05/09/2024 Diabetic Foot Exam 05/09/2025 05/09/2024, 05/05/2023 GFR 05/09/2025 05/09/2024, 04/19, 10/08/2022 Lipid Panel 05/05/2028 05/05/2023, 10/08/2022 Colonoscopy 08/30/2034 11/05/2021 Colorectal Cancer Screening 08/30/2034 AAA Screening Completed 11/04/2022 Influenza Vaccine (FLU [...] Not on filedocumented as of this encounter Procedures Procedure Name Priority Date/Time Associated Diagnosis Comments COLONOSCOPY Routine 11/05/2021 documented in this encounter Results * COLONOSCOPY (11/05/2021) 11/05/2021 us Benoit Brian MD GASTRO LOWER Final Result OUTSIDE LAB (SEE SCANNED REPORT) documented in this encounter Care Teams Complaint Investigations Officer Relationship Specialty Start Date End Date Pooja Avila CRNP [address] [place] [id number] PCP - General Nurse Practitioner 02/01/24 documented as of this encounter
--- OUTSIDE RECORDS SUMMARY | 2024-09-26 16:42 | External Medical Summary | Summary of Care ---
Author Name Unknown Organization [facility] Address [address] [place] [address] Phone [phone] Care Team Providers Care Retirement Specialist Name Role Phone Pooja Avila Primary Care Provider [phone] Reason for Referral * Precert (Diagnostic Medical) (Within 10 days (routine)) - Authorized Specialty Diagnoses / Procedures Referred By Contac t Referred To Contact Cardiac Studies Diagnoses Encounter for long-term (current) use of medications Procedures ECHO, COMPLETE (2D), TRANS-THORACIC Luisito Gong DO [address] [place] [address] Phone: tel: fax: Referral ID Status Reason Start Date Expiration Date V isits Requested Visits Authorized [id number] Authorized Precert 05/09/2024 [id number] Reason for Visit * Reason Onset Date Comments Physical-Exam Pt here for CPE, Pt would like labs ordered. Medication Administration 05/09/2024 Flu an d/or Pneumo Inj Encounter Details Date Type Department Care Team (Late st Contact Info) Description 05/09/2024 9:00 AM EDT Office Visit [facility] [address] [place] [id number] Luisito Gong DO [address] [place] [address] Type 2 diabetes mellitus with hemoglobin A1c goal of less than 8.0% (HCC)*; Need for pneumococcal vaccination; Need for prophylactic vaccination and inoculation against influenza; Diabetic peripheral neuropathy (HCC); HTN, goal below 140/90; Gastroesophageal reflux disease without esophagitis; Chronic bilateral low back pain with right-sided sciatica; Obesity, Class I, BMI 30.0-34.9 (see actual BMI); Medical marijuana use; BPH with obstruction/lower urinary tract symptoms; Encounter for long-term (current) use of medications Allergies Active Allergy Reactions Criticality Noted Date Comments Propoxyphene Rash 10/08/2022 documented as of this encounter (statuses as of 05/31/2024) Medications Omeprazole 20 MG Oral Capsule Delayed [...] mouth in the morning. 180 Capsule 3 4 Active Benazepril HCl 40 MG Oral Tablet Take 1 Tablet by mouth daily. 90 Tablet 3 4 Active Pioglitazone HCl 30 MG Oral Tablet (Actos) Take 1 Tablet by mouth daily. 90 Tablet 3 4 Active Meloxicam 7.5 MG Oral Tablet (Mobic) TAKE ONE TABLET BY MOUTH ONCE DAILY 90 Tablet 1 4 Active Cetirizine HCl 10 MG Oral Tablet (ZyrTEC Allergy) Take 1 Tablet by mouth in the morning. 90 Tablet 3 3 05/09/20 24 Discontinu ed(Medicat ion List Clean Up) documented as of this encounter (statuses as of 05/31/2024) Active Problems Problem Noted Date Diagnosed Date [...] as of this encounter (statuses as of 05/31/2024) Immunizations Name Administration Dates Next Due Seasonal Influenza, Quadrivalent Hd (Fluzone Hd) 05/05/2023 documented as of this encounter Social History Tobacco Use Types Packs/Day Years Used Date Smoking Tobacco: Former Cigarettes 1984 Smokeless Tobacco: Never Tobacco Cessation:Counseling Given: Not Answered Alcohol Use Standard Drinks/Week Comments Yes 0 [...] on file documented as of this encounter Last Filed Vital Signs Vital Sign Reading Time Taken Comments Blood Pressure 132/74 05/09/2024 8:59 AM EDT Pulse 73 05/09/2024 8:59 AM EDT Temperature 35.9 C (96.6 F) 05/09/2024 8:59 AM ED T Respiratory Rate 16 05/09/2024 8:59 AM EDT Oxygen Saturation 99% 05/09/2024 8:59 AM EDT Inhaled Oxygen Concentration - - Weight 110.2 kg (243 lb) 05/09/2024 8:59 AM EDT Height 180.3 cm (5' 11") 05/09/2024 8:59 AM EDT Body Mass Index 33.89 05/09/2024 8:59 AM EDT documented in this encounter Patient Instructions * Patient Instructions* Nita Berger LPN - 05/09/2024 8:55 AM EDT ~~PATIENT INSTRUCTIONS FOR PNEUMOCOCCAL VACCINE~~ Possible side effects of pneumococcal vaccine, (pneumonia shot), are usually mild and can include: 1. Soreness or redness at injection site 2. Low grade fever 3. Body aches You may use Tylenol/Acetaminophen as needed for these symptoms. LET YOUR DOCTOR KNOW IMMEDIATELY IF YOU HAVE DIFFICULTY BREATHING OR SWALLOWING, EXPERIENCE ITCHINGOF FEET OR HANDS, HAVE SWELLING OF EYES, FACE OR INSIDE OF NOSE. Diabetes: Keeping Feet Healthy Inspect your feet every day for signs of a problem. Diabetes can damage nerves in your feet and cause neuropathy. This condition makes it hard for you to feel injuries or sore spots. Diabetes can also change blood flow, making it harder for small problems, like a blister, to heal properly. In fact, minor injuries can quickly become serious infections that send you to the hospital. Practice self-care to protect your feet and keep them healthy. Take Special Care Inspect your feet daily for problems such as redness, blisters, cracks, dry skin, or numbness. Use a mirror to see the bottoms of your feet. Or, ask for help. Manage your diabetes. Monitor and control your blood sugar. Take all your medications as prescribed. Avoid walking barefoot, even indoors. Wash your feet with warm water and mild soap. Dry well, especially between toes. Dont treat corns or calluses yourself. Talk to your doctor or paleontology teacher (a doctor who specializes in foot care) if you need assistance trimming your toenails. Use moisturizing cream or lotion if you have dry skin, but dont use it between toes. Dont use heating pads on your feet. If you have neuropathy, you could get a burn and not feel it. Stop smoking. Smoking restricts blood flow and can make it harder for wounds to heal. Have Regular Checkups Foot problems can develop quickly. So be sure to follow your healthcare teams schedule for regular checkups. During office visits, take off your shoes and socks as soon as you get in the exam room. Ask your healthcare provider to examine your feet for problems. This will make it easier to find and treat small skin irritations before they get worse. Regular checkups can also help keep track of the blood flow and feeling in your feet. If you have neuropathy, you may need to have checkups more often. Wear Proper Footwear Wearing proper footwear is very important. If areas of your feet have been damaged by too much pressure, your healthcare provider may recommend changing your footwear. In some cases, avoiding high heels or tight work boots may be all thats needed. Or, your healthcare provider may recommend special shoes or custom inserts. These help protect your feet and keep existing irritations from getting worse. If you need special footwear, ask your healthcare provider if you qualify for [employer] diabetic shoe program. Make Sure Shoes and Socks Fit Any pair of shoes--new or old--should feel comfortable as soon as you put them on. There shouldnt be any rubbing when you walk. Wear the right shoe for any activity. For instance, a running shoe is designed to keep your feet injury-free while jogging. Buy shoes at the end of the day, when your feet are larger. Make sure they provide support without feeling too loose. Make sure your socks fit, t oo. Wear soft, seamless, well-padded socks for activity. Cotton or microfiber socks are best to help to absorb sweat. To protect your feet, avoid shoes that are open-toed or open-heeled. If you have questions about what kinds of shoes and socks are best, talk to your healthcare team. Get Regular Exercise Regular exercise improves blood flow in your feet. It also increases foot strength and flexibility.Gentle exercises, like walking or riding a stationary bicycle, are best. You can also do special foot exercises. Just be sure to talk with your healthcare provider before starting any exercise program. Also mention if any exercise causes pain, redness, or other signs of foot problems. Note: If you have any kind of break in the skin of your foot or ankle, keep the area clean. Then call your doctor--especially if the area doesnt appear to be healing. [id number] [employer], [address] [place] [address], [place] [address]. All rights reserved. This information is not intended as a substitute for professional medical care. Always follow your healthcare professional's instructions. ~~PATIENT INSTRUCTIONS FOR FLU SHOT~~ Possible side effects of influenza vaccine, (flu shot), are usually mild and include: 1. Soreness or redness at injection site 2. Low grade fever 3. Body aches You may use Tylenol/Acetaminophen as needed for these symptoms. LET YOUR DOCTOR KNOW IMMEDIATELY IF YOU HAVE DIFFICULTY BREATHING OR SWALLOWING, EXPERIENCE ITCHINGOF FEET OR HANDS, HAVE SWELLING OF EYES, FACE OR INSIDE OF NOSE. documented in this encounter Progress Notes * Luisito Gong, DO - 05/09/2024 9:09 AM EDT Images from the original note were not included. Assessment and Plan Assessment & Plan Type 2 Diabetes Mellitus Well-controlled with lifestyle modifications and Actos. Discussed the potential cardiac risks associated with long-term Actos use. -Order labs including A1c for next visit. -Plan echocardiogram in the next 6 months to assess cardiac function. Chronic Pain Managed with hydrocodone. Patient has had multiple epidurals and knee injections with some relief. -Continue current pain management plan with pain medicine at outside facility. Nocturnal Leg Cramps Frequent, disruptive to sleep, and resistant to multiple interventions. Possible association with previous back surgery. -Suggest trial of [id number] Benadryl 25mg at night. Hypertension Recent blood pressure readings have been slightly elevated. -Continue to monitor blood pressure at subsequent visits. Frequent Nocturia Wakes up 3-4 times per night to urinate. -No intervention planned at this time. General Health Maintenance -Order routine labs for next visit. History of Present Illness Conner Vegas is a 74 year old male that presents for Physical-Exam (Pt here for CPE, Pt would like labs ordered.) and Medication Administration (Flu and/or Pneumo Inj) History of Present Illness The patient, with a history of diabetes, presents for a routine check-up. He manages his diabetes by monitoring his A1c levels every six months and adjusting his diet accordingly. He does not check his blood sugar daily. He reports occasional consumption of sweets and maintains a diet of mostly sugar-free or diet foods. He is currently on Actos (pioglitazone) for diabetes management, which he reports works well for him. The patient also reports experiencing leg cramps, particularly at night, which he believes may be related to a previous back surgery. He has tried various remedies, including B vitamins, magnesium, tonic water, and a lavender soap, with limited success. The cramps disrupt his sleep, often waking him up two to three times a night. In addition to diabetes and leg cramps, the patient also has chronic back pain, for which he has received two epidurals. He reports that the epidurals have significantly helped his lower back pain. He is currently managing his pain with hydrocodone, prescribed by [facility], and medical marijuana. Physical Exam Vitals: 05/09/24 0859 Temp: 35.9 C (96.6 F) Pulse: 73 Resp: 16 SpO2: 99% BP: 132/74 BMI: 33.91 Physical Exam Constitutional: Appearance: Normal appearance. HENT: Head: Normocephalic and atraumatic. Eyes: Extraocular Movements: Extraocular movements intact. Pupils: Pupils are equal, round, and reactive to light. Cardiovascular: Rate and Rhythm: Normal rate. Pulmonary: Effort: Pulmonary effort is normal. Neurological: General: No focal deficit present. Mental Status: He is alert and oriented to person, place, and time. Psychiatric: Mood and Affect: Mood normal. Behavior: Behavior normal. Wrap-Up Follow-up: Return in about 6 months (around 11/07/2024). | Check-out note: Every other with Th[place] Time: Total time today was 42 minutes excluding any time spent in the performance of separately billed services. Text in this note was generated using an ambient documentation service. I discussed the use of a device to record and summarize our discussion today. All persons present during the encounter consented to its use. * Nita Berger LPN - 05/09/2024 8:55 AM EDT Pt not available when vaccines to be given. documented in this encounter Miscellaneous Notes * Addendum Note - Negra Jj OSA - 05/12/2024 8:03 AM EDTAddended by: NEGRA JJ on: 05/12/2024 08:03 AM Modules accepted: Orders documented in this encounter Plan of Treatment Upcoming Encounters Date Type Department Care Team (Late st Contact Info) Description 06/02/2024 11:30 AM EST Cardiac Studies Cardiac Studies [address] [place] [address] 11/07/2024 8:20 AM EDT Office Visit [facility] [address] [place] [id number] Pooja Avila CRNP [address] [place] [address] 05/11/2025 8:00 AM EDT Office Visit [facility] [address] [place] [id number] Luisito Gong DO [address] [place] [address] Scheduled Orders Name Type Priority Associated Diagnoses Orde r Schedule COMPREHENSIVE METABOLIC PANEL Lab Routine Type 2 diabetes mellitus with hemoglobin A1c goal of less than 8.0% (HCC) Expected: 11/05/2024 (Approximate), Expires: 05/09/2025 HEMOGLOBIN A1C Lab Routine Type 2 diabetes mellitus with hemoglobin A1c goal of less than 8.0% (HCC) Expected: 11/05/2024 (Approximate), Expires: 05/09/2025 ALBUMIN / CREATININE RATIO, URINE Lab Routine Type 2 diabetes mellitus with hemoglobin A1c goal of less than 8.0% (HCC) HTN, goal below 140/90 Expected: 11/05/2024 (Approximate), Expires: 05/09/2025 LIPID PANEL WITH DIRECT LDL IF TG IS HIGH Lab Routine Type 2 diabetes mellitus with hemoglobin A1c goal of less than 8.0% (HCC) Expected: 11/05/2024 (Approximate), Expires: 05/09/2025 ECHO, COMPLETE (2D), TRANS-THORACIC Echocardiology Routine Encounter for long-term (current) use of medications Expected: 05/09/2024, Expires: 06/09/2026 Health Maintenance Due Date Last Done Comments Pneumococcal Vaccine: 65+ Years (1 of 2 - PCV) 02[birth year]27/1956 DTap/Tdap Vaccines (1 - Tdap) 02/27/1971 Colonoscopy 02/27/1997 Fecal Occult Blood Test 02/27/1997 Sigmoidoscopy 02/27/1997 Zoster Vaccines (1 of 2) 02/27/2002 Adult Wellness Visit 02/27/2018 Diabetic Eye Exam 02/20/2024 02/19/2023, , 10/03/2022, Additional history exists COVID-19 Vaccine ( season) 2024 05/14/2021, 10/03/2020, 09/12/2020 Influenza Vaccine (FLU shot) (#1) 2024 05/05/2023, 05/05/2023, 05/14/2021, Additional history exists Cologuard 09/19/2024 09/19/2021, 09/12/2021 Colorectal Cancer Screening 09/19/2024 HbA1c 11/07/2024 05/09/2024, 04/0 11/2023, 05/05/2023, Additional history exists Albumin/Creatinine Ratio 05/09/202505/09/ 024, 05/05/2023, 10/08/2022 Depression Screening 05/09/2025 05/09/2024 Diabetic Foot Exam 05/09/2025 05/09/2024, 05/05/2023 GFR 05/09/2025 05/09/2024, 04/19, 10/08/2022 Lipid Panel 05/05/2028 05/05/2023, 10/08/2022 AAA Screening Completed 11/04/2022 HPV (Gardasil) Vaccine Aged Out No lo nger eligible based on patient's age to complete this topic Hepatitis B Vaccine Aged Out No longe r eligible based on patient's age to complete this topic Hepatitis C Screening Discontinued MENINGOCOCCAL (MENACTRA/MENVEO) Aged Out No longer eligible based on patient's age to complete this topic documented as of this encounter Medical Devices Not on filedocumented as of this encounter Results * PSA WITH FREE PSA IF INDICATED (05/09/2024 9:45 AM EDT) PSA 2.09 <4.10 ng/mL 05/09/2024 7:53 PM EDT [facility] Comment:Total PSA is within reference interval. Free PSA testing is not indicated. Blood Venous blood specimen / Unknown Venipuncture / Unknown 05/09/2024 9:45 AM EDT 05/09/2024 9:46 AM EDT us Luisito Gong DO LAB BLOOD ORDERABLES Fi nal Result [facility] [address] [place] [address] * RENAL FUNCTION PANEL (05/09/2024 9:45 AM EDT) BUN 17 6 - 20 mg/dL 05/09/2024 7:45 PM EDT [facility] CREATININE 1.2 0.6 - 1.2 mg/dL 05/09/2024 7:45 PM EDT LABORATORY GM EGFR 67 >=60 mL/min 05/09/2024 7:45 PM EDT [facility] Comment:eGFR is calculated b ased on the CKD-EPI 2020 equation. SODIUM 141 135 - 146 mmol/L 05/09/2024 7:45 PM EDT [facility] POTASSIUM 4.8 3.5 - 5.1 mmol/L 05/09/2024 7:45 PM EDT [facility] CHLORIDE 103 98 - 107 mmol/L 05/09/2024 7:45 PM EDT LABORATORY C CO2 27 22 - 32 mmol/L 05/09/2024 7:45 PM EDT LABORATORY C ANION GAP 11 7 - 15 mmol/L 05/09/2024 7:45 PM EDT LABORATORY C GLUCOSE 116 70 - 120 mg/dL 05/09/2024 7:45 PM EDT LABORATORY C CALCIUM 9.3 8.4 - 10.2 mg/dL 05/09/2024 7:45 PM EDT [facility] Albumin 4.4 3.8 - 5.0 g/dL 05/09/2024 7:45 PM EDT LABORATORY C Phosphorus 3.0 2.5 - 4.8 mg/dL 05/09/2024 7:45 PM EDT [facility] Blood Venous blood specimen / Unknown Venipuncture / Unknown 05/09/2024 9:45 AM EDT 05/09/2024 9:46 AM EDT us Luisito Gong DO LAB BLOOD ORDERABLES Fi nal Result [facility] [address] [place] [address] * ALBUMIN / CREATININE RATIO, URINE (05/09/2024 9:45 AM EDT) Albumin, Random Urine <1.20 mg/dL 05/09/2024 2:55 PM EDT [facility] Creatinine, Random Urine 207 mg/dL 05/09/2024 2:55 PM EDT [facility] Albumin / Creatinine Ratio, Urine <6 <30 mg/g Creat 05/09/2024 2:55 PM EDT [facility] Urine Urine specimen / Unknown Non-blood Collection / Unknown 05/09/2024 9:45 AM EDT 05/09/2024 9:46 AM EDT Narrative [facility] - 05/09/2024 2:55 PM EDT Normal: <30 mg/g creatinine High: 30-300 mg/g creatinine Very High: >300 mg/g creatinine Nephrotic: >2200 mg/g creatinine us Luisito Gong DO LAB URINE ORDERABLES Fi nal Result Performing Organization Address City/[facility]/ZIP Co de Phone Number [facility] [address] [place] [address] * (ABNORMAL) HEMOGLOBIN A1C (05/09/2024 9:45 AM EDT) Hemoglobin A1C 6.0(H) 4.0 - 5.6 % 05/09/2024 2:29 PM EDT [facility] Comment:The use of HbA1c to monitor glycemic status is based on normal hemoglobin and HbA composition. This test should not be used in patients with abnormal hemoglobin that affects the half life of the red blood cell or the in vivo glycation rates. Estimated Average Glucose 126(H) <126 mg/dL 05/09/2024 2:29 PM EDT [facility] Blood Venous blood specimen / Unknown Venipuncture / Unknown 05/09/2024 9:45 AM EDT 05/09/2024 9:46 AM EDT Luisito Gong DO LAB BLOOD ORDERABLES Fi nal Result Performing Organization Address City/[facility]/ZIP Co de Phone Number [facility] [address] [place] [address] documented in this encounter Visit Diagnoses Diagnosis Type 2 diabetes mellitus with hemoglobin A1c goal of less than 8.0% (HCC)- Primary Need for pneumococcal vaccination Need for prophylactic vaccination against streptococcus pneumoniae (pneumococcus) Need for prophylactic vaccination and inoculation against influenza Diabetic peripheral neuropathy (HCC) Type II or unspecified type diabetes mellitus with neurological manifestations, not stated as uncontrolled HTN, goal below 140/90 Unspecified essential hypertension Gastroesophageal reflux disease without esophagitis Esophageal reflux Chronic bilateral low back pain with right-sided sciatica Obesity, Class I, BMI 30.0-34.9 (see actual BMI) Obesity, unspecified Medical marijuana use Encounter for long-term (current) use of other medications BPH with obstruction/lower urinary tract symptoms Hypertrophy of prostate with urinary obstruction and other lower urinary tract symptoms (LUTS) Encounter for long-term (current) use of medications Encounter for long-term (current) use of other medications documented in this encounter Care Teams Retirement Specialist Relationship Specialty Start Date End Date Pooja Avila CRNP [address] [place] [id number] PCP - General Nurse Practitioner 02/01/24 documented as of this encounter
--- OUTSIDE RECORDS SUMMARY | 2024-09-26 16:42 | External Medical Summary | Summary of Care ---
Author Name Unknown Organization [facility] Address [address] [place] [address] Phone [phone] Care Team Providers Care Middleware Consultant Name Role Phone Pooja Avila Primary Care Provider +1- [phone] Reason for Referral * Precert (Diagnostic Medical) (Within 10 days (routine)) - Authorized Specialty Diagnoses / Procedures Referred By Contac t Referred To Contact Cardiac Studies Diagnoses Encounter for long-term (current) use of medications Procedures ECHO, COMPLETE (2D), TRANS-THORACIC Luisito Gong DO [address] [place] [address] Referral ID Status Reason Start Date Expiration Date V isits Requested Visits Authorized [id number] Authorized Precert 05/09/2024 999 999 Reason for Visit * Reason Onset Date Comments Physical-Exam Pt here for CPE, Pt would like labs ordered. Medication Administration 05/09/2024 Flu an d/or Pneumo Inj Encounter Details Date Type Department Care Team (Late st Contact Info) Description 05/09/2024 9:00 AM EDT Office Visit [facility] [address] [place] [address] Luisito Gong DO [address] [place] [address] Type 2 diabetes mellitus with hemoglobin A1c [...] as of this encounter (statuses as of 05/12/2024) Medications Medication Sig Dispensed Refills Start Date End Date Status Omeprazole 20 MG Oral Capsule Delayed Release (PriLOSEC) Take 1 Capsule by mouth daily. Active Multi-Vitamin Oral Tablet take 1 tablet by oral route every day with food Active Potassium Chloride ER 10 MEQ Oral Tablet Extended Release Take by mouth. Acti ve Simvastatin 10 MG Oral Tablet (Zocor) Take by mouth daily. Active Aspirin 81 MG Oral Tablet Delayed Release Take by mouth daily. Active Acetaminophen 325 MG Oral Tablet (Tylenol) Active Magnesium 200 MG Oral Tablet Take 1 Tablet by mouth in the morning. Active hydroCHLOROthiaz dora 12.5 MG Oral Capsule Take 2 Capsules [...] BY MOUTH ONCE DAILY 90 Tablet 1 01/07/2024 Active Cetirizine HCl 10 MG Oral Tablet (ZyrTEC Allergy) Take 1 Tablet by mouth in the morning. 90 Tablet 3 10/08/2022 05/09/2024 Discontinued (Medication List Clean Up) documented as of this encounter (statuses as of 05/12/2024) Active Problems Problem Noted Date Diagnosed Date [...] as of this encounter (statuses as of 05/12/2024) Immunizations Name Administration Dates Next Due Seasonal Influenza, Quadrivalent Hd (Fluzone Hd) 05/05/2023 documented as of this encounter Social History Tobacco Use Types Packs/Day Years Used Date Smoking Tobacco: Former Cigarettes - 1984 Smokeless Tobacco: Never Tobacco Cessation:Counseling Given: [...] Recorded Sex Assigned at Not on file Gender Identity Not on file Sexual Orientation Not on file Job Start Date Occupation Industry Not on file Not on file Not on file documented as of this [...] calluses yourself. Talk to your doctor or diesel engine engineer (a doctor who specializes in foot care) [...] the area doesnt appear to be healing. 4772-3074 [employer], [address] [place] [address], [place] [address]. All rights reserved. This information is not [...] in this encounter Progress Notes * Luisito Gong DO - 05/09/2024 9:09 AM EDT Images from the original note were not included. Assessment and Plan Assessment & Plan History of Present Illness Conner Vegas is a 74 year old male that presents for Physical-Exam (Pt here for CPE, Pt would like labs ordered.) and Medication Administration (Flu and/or Pneumo Inj) History of Present Illness Physical Exam Vitals: 05/09/24 0859 Temp: 35.9 C (96.6 F) Pulse: 73 Resp: 16 SpO2: 99% BP: 132/74 BMI: 33.91 Wrap-Up Follow-up: Return in about 6 months [...] 11:30 AM EST Cardiac Studies Cardiac Studies [address] [place] [address] 11/07/2024 8:20 AM EDT Office Visit [facility] [address] [place] [address] Pooja Avila CRNP [address] [place] [address] 05/11/2025 8:00 AM EDT Office Visit [facility] [address] [place] [address] Luisito Gong DO [address] [place] [address] Scheduled Orders Name Type Priority Associated Diagnoses [...] 11/2023, 05/05/2023, Additional history exists Albumin/Creatinine Ratio 05/09/20252 024, 05/05/2023, 10/08/2022 Depression Screening 05/09/2025 05/09/2024 [...] AM EDT Luisito Gong DO LAB BLOOD ORDER JUAN FRANCISCO Performing Organization Address City/State/[facility] Co de Phone Number [facility] [address] [place] [address] * RENAL FUNCTION PANEL (05/09/2024 9:45 AM EDT) BUN 17 6 - 20 mg/dL 05/09/2024 7:45 PM EDT [facility] CREATININE 1.2 0.6 - 1.2 mg/dL 05/09/2024 7:45 PM EDT [facility] EGFR 67 >=60 mL/min 05/09/2024 7:45 PM EDT [facility] Comment:eGFR is calculated b ased on the CKD-EPI 2020 equation. SODIUM 141 135 - 146 mmol/L 05/09/2024 7:45 PM EDT [facility] POTASSIUM 4.8 3.5 - 5.1 mmol/L 05/09/2024 7:45 PM EDT [facility] CHLORIDE 103 98 - 107 mmol/L 05/09/2024 7:45 PM EDT [facility] CO2 27 22 - 32 mmol/L 05/09/2024 7:45 PM EDT [facility] ANION GAP 11 7 - 15 mmol/L 05/09/2024 7:45 PM EDT [facility] GLUCOSE 116 70 - 120 mg/dL 05/09/2024 7:45 PM EDT LABORATORY C CALCIUM 9.3 8.4 - 10.2 mg/dL 05/09/2024 7:45 PM EDT [facility] Albumin 4.4 3.8 - 5.0 g/dL 05/09/2024 7:45 PM EDT LABORATORY C Phosphorus 3.0 2.5 - 4.8 mg/dL 05/09/2024 7:45 PM EDT LABORATORY C Blood Venous blood specimen / Unknown Venipuncture / Unknown 05/09/2024 9:45 AM EDT 05/09/2024 9:46 AM EDT Luisito Gong DO LAB BLOOD ORDER JUAN FRANCISCO Performing Organization Address City/[facility] Co de Phone Number [facility] [address] [place] [address] * ALBUMIN / CREATININE RATIO, URINE (05/09/2024 9:45 AM EDT) Albumin, Random Urine <1.20 mg/dL 05/09/2024 2:55 PM EDT [facility] Creatinine, Random Urine 207 mg/dL 05/09/2024 2:55 PM EDT [facility] Albumin / Creatinine Ratio, Urine <6 <30 mg/g Creat 05/09/2024 2:55 PM EDT [facility] Urine Urine specimen / Unknown Non-blood Collection / Unknown 05/09/2024 9:45 AM EDT 05/09/2024 9:46 AM EDT Narrative LABORATORY C - 05/09/2024 2:55 PM EDT Normal: <30 mg/g creatinine High: 30-300 mg/g creatinine Very High: >300 mg/g creatinine Nephrotic: >2200 mg/g creatinine Luisito Gong DO LAB URINE ORDER JUAN FRANCISCO Performing Organization Address City/[facility]/ZIP Co de Phone Number [facility] [address] [place] [address] * (ABNORMAL) HEMOGLOBIN A1C (05/09/2024 9:45 AM EDT) Hemoglobin A1C 6.0(H) 4.0 - 5.6 % 05/09/2024 2:29 PM EDT [facility] Comment:The use of HbA1c to monitor glycemic status is based on normal hemoglobin and HbA composition. This test should not be used in patients with abnormal hemoglobin that affects the half life of the red blood cell or the in vivo glycation rates. Estimated Average Glucose 126(H) <126 mg/dL 05/09/2024 2:29 PM EDT [facility] Blood Venous blood specimen / Unknown Venipuncture / Unknown 05/09/2024 9:45 AM EDT 05/09/2024 9:46 AM EDT Luisito Gong DO LAB BLOOD ORDER JUAN FRANCISCO [facility] [address] [place] [address] documented in this encounter Visit Diagnoses Diagnosis [...] medications documented in this encounter Care Teams Middleware Consultant Relationship Specialty Start Date End Date Pooja Avila CRNP [address] [facility] [place] [address] PCP - General Nurse Practitioner 02/01/24 documented as of this encounter
--- OUTSIDE RECORDS SUMMARY | 2024-09-26 16:42 | External Medical Summary | Summary of Care ---
Author Name Unknown Organization [facility] Address [address] [place] [address] Phone [phone] Care Team Providers Care Teradata Developer Name Role Phone Pooja Avila Primary Care Provider +1- [phone] Reason for Visit * Reason Comments eRx-Medication Refill Encounter Details Date Type Department Care Team (Late st Contact Info) Description 07/16/2024 Refill Family Practice [facility] [address] [place] [address] Izabel Gong DO [address] [place] [address] Allergies Active Allergy Reactions Criticality Noted Date Comments Propoxyphene Rash 10/08/2022 documented as of this encounter (statuses as of 07/18/2024) Medications Omeprazole 20 MG Oral Capsule Delayed [...] Tablet by mouth in the morning. Active hydroCHLOROthi azide 12.5 MG Oral Capsule Take 2 Capsules [...] ONCE DAILY 90 Tablet 1 4 Active Meloxicam 7.5 MG Oral Tablet (Mobic) TAKE ONE TABLET BY MOUTH ONCE DAILY 90 Tablet 1 4 024 Discontinued documented as of this encounter (statuses as of 07/18/2024) Active Problems Problem Noted Date Diagnosed Date [...] as of this encounter (statuses as of 07/18/2024) Immunizations Name Administration Dates Next Due Pneumococcal Conjugate Vaccine, 20-valent (Prevn ar20) 06/02/2024 Seasonal Influenza, High Dos e, Trivalent, PF, IM (Fluzone HD) 06/02/2024 Seasonal Influenza, Quadrivalent Hd (Fluzone Hd) 05/05/2023 documented as of this encounter Social History Tobacco Use Types Packs/Day Years Used Date Smoking Tobacco: Former Cigarettes - 1984 Smokeless Tobacco: Never Alcohol Use [...] encounter Miscellaneous Notes * Telephone Encounter - Jarret Farias lupillo - 07/18/2024 11:13 AM EST Signed Prescriptions: Disp Refills Meloxicam 7.5 MG Oral Tablet (Mobic) 90 Tab*1 Sig: TAKE ONE TABLET BY MOUTH ONCE DAILYAuthorizing Provider: IZABEL GONG User: JARRET FARIAS TT documented in this encounter Plan of Treatment Upcoming Encounters Date Type Department Care Team (Late st Contact Info) Description 11/07/2024 8:20 AM EDT Office Visit [facility] [address] [place] [address] Pooja Avila CRNP [address] [place] [address] 05/11/2025 8:00 AM EDT Office Visit [facility] [address] [place] [address] Izabel Gong, [address] [place] [address] Health Maintenance Due Date Last Done Comments [...] filedocumented as of this encounter Care Teams Teradata Developer Relationship Specialty Start Date End Date Pooja Avila CRNP [address] [place] [address] PCP - General Nurse Practitioner 02/01/24 documented as of this encounter
--- OUTSIDE RECORDS SUMMARY | 2024-09-26 16:42 | External Medical Summary | Summary of Care ---
Author Name Unknown Organization [facility] Address [address] [place] [address] Phone [phone] Care Team Providers Care Export Packer Name Role Phone Pooja Avila Primary Care Provider +1- [phone] Reason for Visit * Reason Onset Date Comments Medication Administration 06/02/2024 Flu an d/or Pneumo Inj Encounter Details Date Type Department Care Team (Late st Contact Info) Description 06/02/2024 1:00 PM EST Nurse Only Ancillary [address] [place] [address] [place], Nurse [address] [place] [address] Medication Administration (Flu and/or Pneu... Allergies Active Allergy Reactions Criticality Noted Date Comments Propoxyphene Rash 10/08/2022 documented as of this encounter (statuses as of 06/02/2024) Medications Omeprazole 20 MG Oral Capsule Delayed [...] ONCE DAILY 90 Tablet 1 01/07/2024 Active documented as of this encounter (statuses as of 06/02/2024) Active Problems Problem Noted Date Diagnosed Date [...] as of this encounter (statuses as of 06/02/2024) Immunizations Name Administration Dates Next Due Pneumococcal Conjugate Vaccine, 20-valent (Prevn ar20) 06/02/2024 Seasonal Influenza, High Dos e, Trivalent, PF, IM (Fluzone HD) 06/02/2024 Seasonal Influenza, Quadrivalent Hd (Fluzone Hd) 05/05/2023 documented as of this encounter Social History Tobacco Use Types Packs/Day Years Used Date Smoking Tobacco: Former Cigarettes 1 1 963 - 1984 Smokeless Tobacco: Never [...] on file documented as of this encounter Progress Notes * Willow Li CMA - 06/02/2024 12:03 PM EST PRE - ADMINISTRATION DOCUMENTATION Are you experiencing any cold symptoms or fever? No Have you had Guillain-Newport Syndrome (an illness that causes paralysis) within the last 6 weeks? No Have you had the flu shot in the past? YES Have you ever had a reaction to the flu shot? No Willow Li CMA, 06/02/2024 12:03 PM Immunization Administration Documentation Time Out Procedure Performed: Yes Patient Identified (Ask Name/Date of ): Yes Does the patient have a fever greater than 101 degrees today? No Patient allergic to latex? No VFC Stock: No Immunization(s) verified: Yes, Immunization Name: Flu, VIS Sheet(s) given: Yes Verified Side and Site: Yes Verified Shot(s) with Parent(s)/Patient: Yes documented in this encounter Plan of Treatment Upcoming Encounters Date Type Department Care Team (Late st Contact Info) Description 11/07/2024 8:20 AM EDT Office Visit [facility] [address] [facility] [place] [address] Pooja Avila CRNP [address] [place] [address] 05/11/2025 8:00 AM EDT Office Visit [facility] [address] [facility] [place] [address] Luisito Gong, [address] [place] [address] Health Maintenance Due Date Last Done Comments [...] 05/05/2023, 05/05/2023, Additional history exists Pneumococcal Vaccine: 65+ Years Completed 06/02/2024 HPV (Gardasil) Vaccine Aged [...] Not on filedocumented as of this encounter Visit Diagnoses Diagnosis Need for prophylactic vaccination and inoculation against influenza- Primary documented in this encounter Care Teams Export Packer Relationship Specialty Start Date End Date Pooja Avila CRNP [address] [place] [address] PCP - General Nurse Practitioner 02/01/24 documented as of this encounter
--- OUTSIDE RECORDS SUMMARY | 2024-09-26 16:43 | External Medical Summary | Summary of Care ---
Author Name Unknown Organization [facility] Address [address] [place] [address] Phone [phone] Care Team Providers Care Electrical Contacts Adjuster Name Role Phone Pooja Avila Primary Care Provider +1- [phone] Reason for Visit * Reason Comments Outpatient Testing Encounter Details Date Type Department Care Team (Late st Contact Info) Description 05/09/2024 9:50 AM EDT Laboratory Laboratory, [facility] [address] [place] [address] [facility] [address] [place] [address] Type 2 diabetes mellitus with hemoglobin A1c goal of less than 8.0% ([facility]); BPH with obstruction/lower urinary tract symptoms Allergies Active Allergy Reactions Criticality Noted Date Comments Propoxyphene Rash 10/08/2022 documented as of this encounter (statuses as of 05/09/2024) Medications Medication Sig Dispensed Refills Start Date [...] Tablet by mouth in the morning. Active hydroCHLOROthiazide 12.5 MG Oral Capsule Take 2 Capsules [...] as of this encounter (statuses as of 05/09/2024) Active Problems Problem Noted Date Diagnosed Date [...] as of this encounter (statuses as of 05/09/2024) Immunizations Name Administration Dates Next Due Seasonal Influenza, Quadrivalent Hd (Fluzone Hd) 05/05/2023 documented as of this encounter Social History Tobacco Use Types Packs/Day Years Used Date Smoking Tobacco: Former Cigarettes 963 - 1984 Smokeless Tobacco: Never Alcohol Use Standard Drinks/Week Comments Yes 0 (1 standard drink = 0.6 oz pur e alcohol) social PHQ-2 Answer Date Recorded PHQ Adult Total Score 0 05/05/2023 Utilities Answer Date Recorded Do you have [...] 11:30 AM EST Cardiac Studies Cardiac Studies [address] [place] [address] 11/07/2024 8:20 AM EDT Office Visit [facility] [address] [place] [address] Pooja Avila CRNP [address] [place] [address] 05/11/2025 8:00 AM EDT Office Visit [facility] [address] [place] [address] Luisito Gong DO [address] [place] [address] Pending Results Name Type Priority Associated Diagnoses Date /Time HEMOGLOBIN A1C Lab Routine Type 2 diabetes mellitus with hemoglobin A1c goal of less than 8.0% ([facility]) 05/09/2024 9:45 AM EDT ALBUMIN / CREATININE RATIO, URINE Lab Routine Type 2 diabetes mellitus with hemoglobin A1c goal of less than 8.0% ([facility]) 05/09/2024 9:45 AM EDT RENAL FUNCTION PANEL Lab Routine Type 2 diabetes mellitus with hemoglobin A1c goal of less than 8.0% ([facility]) 05/09/2024 9:45 AM EDT PSA WITH FREE PSA IF INDICATED Lab Routine BPH with obstruction/lower urinary tract symptoms 05/09/2024 9:45 AM EDT Health Maintenance Due Date Last Done Comments Pneumococcal Vaccine: 65+ Years (1 of 2 - PCV) 02[birth year]27/1956 DTap/Tdap Vaccines (1 - Tdap) 02/27/1971 Colonoscopy 02/27/1997 Fecal Occult Blood Test 02/27/1997 Sigmoidoscopy 02/27/1997 Zoster Vaccines (1 of 2) 02/27/2002 Adult Wellness Visit 02/27/2018 Diabetic Eye Exam 02/20/2024 02/19/2023, , 10/03/2022, Additional history exists COVID-19 Vaccine ( - season) 2024 05/14/2021, 10/03/2020, 09/12/2020 Influenza Vaccine (FLU shot) (#1) 2024 05/05/2023, 05/05/2023, 05/14/2021, Additional history exists HbA1c 04/23/2024 10/23/2023, 04/19, 10/08/2022 Albumin/Creatinine Ratio 05/05/2024 05/05/2023, 09/18 GFR 05/05/2024 05/05/2023, 10/08/2022 Cologuard 09/19/2024 09/19/2021, 09/12/2021 Colorectal Cancer Screening 09/19/2024 Depression Screening 05/09/2025 05/09/2024 Diabetic Foot Exam 05/09/2025 05/09/2024, 05/05/2023 Lipid Panel 05/05/2028 05/05/2023, 10/08/2022 AAA Screening [...] as of this encounter Visit Diagnoses Diagnosis Type 2 diabetes mellitus with hemoglobin A1c goal of less than 8.0% (HCC) BPH with obstruction/lower urinary tract symptoms Hypertrophy of prostate with urinary obstruction and other lower urinary tract symptoms (LUTS) documented in this encounter Care Teams Electrical Contacts Adjuster Relationship Specialty Start Date End Date Pooja Avila CRNP [address] [place] [address] PCP - General Nurse Practitioner 02/01/24 documented as of this encounter
--- OUTSIDE RECORDS SUMMARY | 2024-09-26 16:43 | External Medical Summary ---
Author Name Unknown Address Unknown Organization [id number]:[facility]ATORY [facility] [place] - [address] [facility] [address] Laboratory Report Ordering Provider Test Date Status ANTWON PAIZ 05/09/2024 09:45:20 Final Normal: <30 mg/g creatinine< br/>High: 30-300 mg/g creatinine
Very High: >300 mg/g creatinine
Nephrotic: >2200 mg/g creatinine Observation Date Value Abnormality Reference (Units ) Status Albumin, Urine 05/09/2024 09:45:20 <1.20 (mg/dL) Final Creatinine, Urine 05/09/2024 09:45:20 207 (mg/dL) Final Albumin/Creatinine [Mass Ratio] in Urine 05/09/2024 09:45:20 <6 <30 (mg/g Creat) Final Performing Location LAB[facility]ATORY [facility] [place] - [address] [facility] [address]
--- OUTSIDE RECORDS SUMMARY | 2024-09-26 16:43 | External Medical Summary ---
Author Name Unknown Address Unknown Organization [id number]:[facility] [place] [facility] [address] [facility] [address] [facility] [address] Laboratory Report Ordering Provider Test Date Status ANTWON PAIZ 05/09/2024 09:45:20 Final Observation Date Value Abnormality Reference (Units ) Status HbA1C 05/09/2024 09:45:20 6.0 Above high normal 4. 0-5.6 (%) Final The use of HbA1c to monitor glycemic status is based on normal hemoglobin and HbA composition. This test should not be used in patients with abnormal hemoglobin that affects the half life of the red blood cell or the in vivo glycation rates. Glucose, estimated average 05/09/2024 09:45:20 126 Above high normal <126 (mg/dL) Micah simpson Performing Location [facility] [facility] [address] [facility] [address]
--- OUTSIDE RECORDS SUMMARY | 2024-09-26 16:43 | External Medical Summary | Summary of Care ---
Author Name Unknown Organization [facility] Address [address] [place] [address] Phone [phone] Care Team Providers Care Small Order Cutter Name Role Phone Pooja Avila Primary Care Provider +1- [phone] Reason for Referral * Precert (Diagnostic Medical) (Within 10 days (routine)) - Authorized Specialty Diagnoses / Procedures Referred By Contac t Referred To Contact Cardiac Studies Diagnoses Encounter for long-term (current) use of medications Procedures ECHO, COMPLETE (2D), TRANS-THORACIC Luisito Gong DO [address] [place] [address] Referral ID Status Reason Start Date Expiration Date V isits Requested Visits Authorized [id number] Authorized Precert 05/09/2024 999 999 Reason for Visit * Reason Onset Date Comments Physical-Exam Pt here for CPE, Pt would like labs ordered. Medication Administration 05/09/2024 Flu an d/or Pneumo Inj Encounter Details Date Type Department Care Team (Late st Contact Info) Description 05/09/2024 9:00 AM EDT Office Visit [facility] [address] [place] [address] Luisito Gong DO [address] [place] [address] Type 2 diabetes mellitus with hemoglobin A1c [...] calluses yourself. Talk to your doctor or broth setter (a doctor who specializes in foot care) [...] the area doesnt appear to be healing. 1416-0420 [employer], [address] [place] [address], [place] [address]. All rights reserved. This information is not [...] to be given. documented in this encounter Plan of Treatment Upcoming Encounters Date Type Department Care Team (Late st Contact Info) Description 06/02/2024 11:30 AM EST Cardiac Studies Cardiac Studies [address] [place] [address] 11/07/2024 8:20 AM EDT Office Visit [facility] [address] [place] [address] Pooja Avila CRNP [address] [place] [address] 05/11/2025 8:00 AM EDT Office Visit [facility] [address] [place] [address] Luisito Gong DO [address] [place] [address] Pending Results Name Type Priority Associated Diagnoses Date /Time HEMOGLOBIN A1C Lab Routine Type 2 diabetes mellitus with hemoglobin A1c goal of less than 8.0% ([facility]) 05/09/2024 9:45 AM EDT ALBUMIN / CREATININE RATIO, URINE Lab Routine Type 2 diabetes mellitus with hemoglobin A1c goal of less than 8.0% ([facility]) 05/09/2024 9:45 AM EDT RENAL FUNCTION PANEL Lab Routine Type 2 diabetes mellitus with hemoglobin A1c goal of less than 8.0% ([facility]) 05/09/2024 9:45 AM EDT PSA WITH FREE PSA IF INDICATED Lab Routine BPH with obstruction/lower urinary tract symptoms 05/09/2024 9:45 AM EDT Scheduled Orders Name Type Priority Associated Diagnoses Orde r Schedule HEMOGLOBIN A1C Lab Routine Type 2 diabetes mellitus with hemoglobin A1c goal of less than 8.0% ([facility]) Expected: 05/09/2024 (Approximate), Expires: 06/09/2025 ALBUMIN / CREATININE RATIO, URINE Lab Routine Type 2 diabetes mellitus with hemoglobin A1c goal of less than 8.0% ([facility]) Expected: 05/09/2024, Expires: 05/09/2025 RENAL FUNCTION PANEL Lab Routine Type 2 diabetes mellitus with hemoglobin A1c goal of less than 8.0% ([facility]) Expected: 05/09/2024 (Approximate), Expires: 05/09/2025 PSA WITH FREE PSA IF INDICATED Lab Routine BPH with obstruction/lower urinary tract symptoms Expected: 05/09/2024 (Approximate), Expires: 05/09/2025 COMPREHENSIVE METABOLIC PANEL Lab Routine Type 2 [...] medications documented in this encounter Care Teams Small Order Cutter Relationship Specialty Start Date End Date Pooja Avila CRNP [address] [place] [address] PCP - General Nurse Practitioner 02/01/24 documented as of this encounter
--- OUTSIDE RECORDS SUMMARY | 2024-09-26 16:43 | External Medical Summary ---
Author Name Unknown Address Unknown Organization K01:LABORATORY [facility] [place] - [address] [facility] [address] Laboratory Report Ordering Provider Test Date Status ANTWON PAIZ 05/09/2024 09:45:20 Final Observation Date Value Abnormality Reference (Units ) Status PSA 05/09/2024 09:45:20 2.09 <4.10 (ng/ mL) Final Total PSA is within referenc e interval. Free PSA testing is not indicated. Performing Location LAB[facility]ORY [facility] [place] [facility] [address] [facility] [address]
--- OUTSIDE RECORDS SUMMARY | 2024-09-26 16:43 | External Medical Summary ---
Author Name Unknown Address Unknown Organization [id number]:[facility] [place] - [address] [place] [address] Laboratory Report Ordering Provider Test Date Status ANTWON PAIZ 05/09/2024 09:45:20 Final Observation Date Value Abnormality Reference (Units ) Status BUN 05/09/2024 09:45:20 17 6-20 (mg/dL) Final Creatinine 05/09/2024 09:45:20 1.2 0.6-1.2 (mg/dL) Final Glomerular filtration rate/1.73 sq M.predicted [Volume Rate/Area] in Serum, Plasma or Blood by Creatinine-based formula (CKD-EPI) 05/09/2024 09:45:20 67 >=60 (mL/min) Final eGFR is calculated based on the CKD-EPI 2020 equation. Sodium 05/09/2024 09:45:20 141 135-146 (m mol/L) Final Potassium 05/09/2024 09:45:20 4.8 3.5-5.1 (m mol/L) Final Cl 05/09/2024 09:45:20 103 98-107 (mm ol/L) Final CO2 05/09/2024 09:45:20 27 22-32 (mmo l/L) Final Anion gap 05/09/2024 09:45:20 11 7-15 (mmol /L) Final Glucose 05/09/2024 09:45:20 116 70-120 (mg /dL) Final Calcium 05/09/2024 09:45:20 9.3 8.4-10.2 ( mg/dL) Final Albumin 05/09/2024 09:45:20 4.4 3.8-5.0 (g /dL) Final Phosphate 05/09/2024 09:45:20 3.0 2.5-4.8 (m g/dL) Final Performing Location [facility] [place] - [address] [place] [address]
[2024-09-26] MEDS: INSULIN ASPART PER UNIT CHARGE SC SCH (16:54)
--- OUTSIDE RECORDS SUMMARY | 2024-09-26 22:39 | External Medical Summary | Summary of Care ---
Author Name Unknown Organization [facility] Address [address] [place] [address] Phone [phone] Care Team Providers Care Rail Bonder Name Role Phone Pooja Avila Primary Care Provider [phone]- [phone] Reason for Visit * Reason Onset Date Comments Advice 09/26/2024 Encounter Details Date Type Department Care Team (Late st Contact Info) Description 09/26/2024 Telephone Family Practice [facility] [address] [place] [id number] Pooja Avila CRNP [address] [place] [address] Advice Allergies Active Allergy Reactions Criticality Noted Date Comments Propoxyphene Rash 10/08/2022 documented as of this encounter (statuses as of 09/26/2024) Medications Omeprazole 20 MG Oral Capsule Delayed [...] as of this encounter (statuses as of 09/26/2024) Active Problems Problem Noted Date Diagnosed Date [...] as of this encounter (statuses as of 09/26/2024) Immunizations Name Administration Dates Next Due Pneumococcal [...] encounter Miscellaneous Notes * Telephone Encounter - Nita Berger LPN - 09/26/2024 10:04 AM EDT Received call from Nurse line for further advice due to pt's complaints noted below. Discussed with Dr. Morton, as per Rachel Weeks LPN request for PCP advice, who verifies pt needs esmer seen at ER now due to sx. Advised Rachel Weeks LPN that pt is to go straight to ER, via wheelchair driver as needed. * Telephone Encounter - Rachel Arndt LPN - 09/26/2024 9:24 AM EDT Patient calling in with concerns of Heart and BP. He stated that his BP has been running high the last few days--he said he can usually tell as he starts having a headache He wanted to speak directly to Dr. Gong as he wanted to see if he could double up on his BP medication. Since --he had what felt like indigestion and a sensation that went down his arm, has not felt right since--- Foggy head/dizziness, headache, chest pressure, fatigue/lack of energy. This is not the first time that this happened. This happened about a week prior. BP machine mostly comes up with Error but last night he did get reading of 183/80's Called and spoke with Rosie in the office, she reviewed with Dr. Morton who advised he been seen in ER [facility]. Patient aware and verbalized understanding. FYI to Dr. Gong * Telephone Encounter - Tisha Torres OSA - 09/26/2024 9:23 AM EDT Reason for patient's call: BP and Heart concerns Caller was transferred to Rachel at the nurse line. documented in this encounter Plan of Treatment Upcoming Encounters Date Type Department Care Team (Late st Contact Info) Description 11/07/2024 8:20 AM EDT Office Visit [facility] [address] [place] [address] Pooja Avila CRNP [address] [place] [id number] 05/11/2025 8:00 AM EDT Office Visit [facility] [address] [place] [id number] Luisito Gong DO [address] [place] [id number] Health Maintenance Due Date Last Done Comments [...] 10/08/2022 Lipid Panel 05/05/2028 05/05/2023, 10/08/2022 Colonoscopy 11/06/2031 11/05/2021 Colorectal Cancer Screening 11/06/2031 AAA Screening Completed 11/04/2022 Influenza Vaccine (FLU shot) Completed 06/02/2024, 05/05/2023, 05/05/2023, Additional history exists Pneumococcal Vaccine: 50+ Years Completed 06/02/2024 HPV (Gardasil) Vaccine Aged Out No lo nger eligible based on patient's age to complete this topic Hepatitis C Screening Discontinued MENINGOCOCCAL (MENACTRA/MENVEO) Aged Out No longer eligible based on patient's age to complete this topic Meningitis B Vaccine (Bexsero/Trumemba) Aged Out No longer eligible based on patient's age to complete this topic documented as of this encounter Medical Devices Not on filedocumented as of this encounter Care Teams Rail Bonder Relationship Specialty Start Date End Date Pooja Avila CRNP [address] [place] [id number] PCP - General Nurse Practitioner 02/01/24 documented as of this encounter
[2024-09-27] MEDS: HYDROCODONE/ACETAMOPHEN 5/325MG TAB PO PRN (04:32)
--- NOTE | 2024-09-27 06:03 | Electrocardiogram Report ---
Test Reason : Blood Pressure : */* mmHG Vent. Rate : 86 BPM Atrial Rate : 86 BPM P-R Int : 146 ms QRS Dur : 96 ms QT Int : 364 ms P-R-T Axes : 25 1 47 degrees QTcB Int : 435 ms Normal sinus rhythm Normal ECG When compared with ECG of 20-Feb-2022 11:10, No significant change was found Confirmed by López White ([id number]) on 09/27/2024 6:03:25 AM Referred By: Confirmed By: López White
[2024-09-27 06:05] LABS: Basophils # (auto) 0.04 K/uL (0.00-0.20); Basophils % (auto) 0.7 %; Eosinophils # (auto) 0.12 K/uL (0.00-0.50); Eosinophils % (auto) 2.1 %; Hematocrit (blood only) 41.4 % (42.0-52.0); Hemoglobin 14.3 g/dl (14.0-18.0); Immature Granulocytes # (auto) 0.03 K/uL (0.01-0.20); Immature Granulocytes % (auto) 0.5 %; Lymphocytes # (auto) 0.43 K/uL (1.20-3.40); Lymphocytes % (auto) 7.6 %; Mean Corpuscular Hemoglobin 31.4 pg (25.0-34.0); Mean Corpuscular Hgb Conc 34.5 g/dL (32.0-36.0); Mean Platelet Volume 12.1 fL (9.4-12.4); Monocytes # (auto) 0.73 K/uL (0.11-0.59); Neutrophils # (auto) 4.28 K/uL (1.40-6.50); Neutrophils % (auto) 76.1 %; Platelet Count 155 K/uL (130-400); RDW Standard Deviation 43.6 fL (36.4-46.3); Red Blood Count 4.55 M/uL (4.70-6.10); White Blood Count 5.63 K/ul (4.8-10.8)
[2024-09-27 06:25] LABS: Calcium 9.3 mg/dl (8.6-10.3); Creatinine Clr Calc Pharmacy 81.7 ml/min; Potassium 3.7 mmol/L (3.5-5.1)
--- NOTE | 2024-09-27 07:55 | Hospitalist Progress Note ---
Date of Service September 27, 2024 Assessment & Plan (1) Chest pain: (2) Hypertensive urgency: Plan 74-year-old male with history of diabetes type 2, hypertension, GERD, BPH, chronic low back pain with right-sided sciatica, presenting with burning sensation on the chest, fatigue x 5 days. Chest pain rule out acute coronary syndrome Hypertensive urgency Risk factors for coronary disease: Family history- (+)CAD mother and brother, diabetes type 2, hypertension Troponin x 4 negative EKG no acute signs of ischemia or infarct Echocardiogram on admission with EF 55-60%, Grade 1 diastolic dysfunction Cardiology consulted, appreciate recs. Recommended the following: -nuclear stress test on 09/27/24 -med changes: changed home simvastatin to rosuvastatin, continued home aspirin and benazapril, HCTZ, added coreg, discontinued home pioglitazone and meloxicam monitor BP closely Diabetes type 2 Lantus 8 units in the morning Insulin sliding scale hgba1c of 5.6, normal Rash on Right lower leg Lyme negative Left lower extremity edema Virgen's Cyst Doppler ultrasound no DVT, noted Virgen's cyst Other chronic medical problems: GERD-continue omeprazole BPH chronic low back pain on hydrocodone Diet: HH/DMII DVT prophylaxis: heparin SQ Dispo: PT/OT for further recs Admission and Anticipated Discharge Date Admission Date: September 26, 2024 Subjective Pt was seen sitting up in bed States that he had burning in the chest that has improved Was awaiting his stress test at the time of exam Review of Systems Review of Systems: All systems reviewed & are unremarkable except as noted in Subjective Physical Exam Physical Exam: General: Alert, oriented. No acute distress HEENT: NC/AT CV: RRR, Resp: Breath sounds clear bilaterally, no increased effort of breathing Abdomen: Soft, nontender Extremities: No edema in lower extremities bilaterally. Results & Data Results & Data Vital Signs (Past 12 Hours) Vital Signs Temp Pulse Pulse Resp BP Pulse Ox O2 Del Method 09/27/24 07:51 36.5 C 71 20 163/72 H 95 Room Air 09/27/24 03:00 36.6 C 73 18 161/86 H 95 Room Air 09/27/24 00:08 72 09/26/24 23:41 36.6 C 68 16 135/71 94 Room Air 09/26/24 22:00 150/79 H 09/26/24 19:57 36.8 C 74 18 172/90 H 97 Room Air
[2024-09-27 08:07] LABS: Estimated Average Glucose 114 mg/dl; Hemoglobin A1C 5.6 % (4.5-5.6)
[2024-09-27] MEDS: LANTUS PER UNIT CHARGE SQ SCH (08:50)
[2024-09-27] MEDS: hydroCHLOROthiazide 25 MG TAB PO SCH (08:52)
[2024-09-27] MEDS: amLODIPine BESYLATE 5 MG TAB PO SCH (08:52)
[2024-09-27] MEDS: ENALAPRIL MALEATE 10 MG TAB PO SCH ×2 (08:53→14:38)
[2024-09-27] MEDS: POTASSIUM CHLORIDE 10 MEQ TABCR PO SCH (08:57)
[2024-09-27] MEDS: PANTOprazole 40 MG TAB PO SCH (08:57)
[2024-09-27] MEDS: ROSUVASTATIN CALCIUM 20 MG TAB PO SCH (08:57)
[2024-09-27] MEDS: MULTIVITAMIN TAB PO SCH (08:57)
[2024-09-27] MEDS: ASPIRIN 81 MG ECTAB PO SCH (08:57)
--- NOTE | 2024-09-27 10:04 | Cardiology Progress Note ---
Date of Service September 27, 2024 Assessment & Plan (1) Chest pain: (2) Uncontrolled hypertension: (3) Hypertensive urgency: (4) HTN, goal below 130/80: (5) Dyslipidemia, goal LDL below 70: Plan 74-year-old male presenting to [facility] ER on September 26, 2024 with chest discomfort. Patient with multiple cardiac risk factors including hypertension, dyslipidemia, type 2 diabetes mellitus, past tobacco use, physical inactivity/obesity, family history of ischemic heart disease. Blood pressure markedly elevated on presentation, 206/106. EKG without acute change. High-sensitivity troponin negative x 4. Resting echocardiography with preserved LV systolic function, without regional wall motion abnormalities. Chest x-ray without acute cardiopulmonary process. Patient NPO. Recommendations: * Lexiscan nuclear stress testing today. * Increase carvedilol to 12.5 mg twice a day. * Continue CHRIS Inhibitor, HCTZ, aspirin, and statin * Discontinue meloxicam and Pioglitazone * Recommend addition of an SGLT2 Inhibitor such as Empagliflozin (Jardiance) * If additional blood pressure control is needed would reconsider discontinuation of potassium chloride (10 mEq/day) and trial spironolactone 12.5 mg/day versus other. Admission and Anticipated Discharge Date Admission Date: September 26, 2024 Supervising Physician Co-Signing Physician Notes Attending attestation: Case reviewed with the advanced practitioner. I have personally performed a history and physical examination on the patient. I have reviewed the advanced practitioner's documentation on the date of service referenced in note, and I agree with, and take responsibility for the plan of care. Patient seen prior to, during, and after nuclear stress test today. Nuclear st ress test revealed normal perfusion. The left ventricular ejection fraction was calculated at 38%, but it is felt that this was artifactual due to a technical limitation with the gating. His ejection fraction was normal on the echocardiogram performed yesterday. Systolic blood pressure was in the 180s when he came down for the stress test. Most recently at 1406 blood pressure improved 143/81. Recommend ongoing observation in the hospital and titration of blood pressure medications with carvedilol and enalapril doses having been increased tolerated today. Patient is also on hydrochlorothiazide and amlodipine. Given his underlying risk factors for coronary disease, would continue aspirin 81 mg daily. Continue rosuvastatin 20 mg daily for goal LDL less than 70 mg/dL. Anuj Follett, DO Subjective Patient seen and examined. Chart, medications, telemetry reviewed. Blood pressures have improved some. No chest discomfort overnight. No shortness of breath. Peripheral edema has improved. EKG without acute change. Troponin negative x 4: 14.2 -> 17.1 -> 17.9 -> 17.8 pg/mL September 26, 2024 TTE: Mild concentric LVH. No regional wall motion abnormalities. Normal LV systolic function. EF 55 to 60%. Normal RV size and function. Grade 1 diastolic dysfunction. No significant valvular disease. Telemetry: Sinus in the 80s, with occasional premature atrial contractions Physical Exam Physical Exam: General: No acute distress. Pleasant. Comfortable. Cooperative. Skin: 1-2 cm lesion on the left cheek HENT: Normocephalic. Atraumatic. Eyes: PER. Conjunctiva pink, sclera clear. Neck: No carotid bruits. No JVD. Heart: Somewhat distant heart sounds. Regular, 80 bpm. No murmur. Lungs: Clear to auscultation. Abdomen: +BS. Soft. Nontender. No masses or organomegaly. Extremities: Minimal edema. No clubbing. No cyanosis. Limited neurological examination is without focal deficits. Pulses: radial=2/4, posterior tibial=1/4. Results & Data Vital Signs (Past 12 Hours) Vital Signs Temp Pulse Pulse Resp BP Pulse Ox O2 Del Method 09/27/24 09:07 66 09/27/24 07:51 36.5 C 71 20 163/72 H 95 Room Air 09/27/24 03:00 36.6 C 73 18 161/86 H 95 Room Air 09/27/24 00:08 72 09/26/24 23:41 36.6 C 68 16 135/71 94 Room Air Laboratory Results Cardiac Enzymes 09/26/24 09/26/24 09/26/24 Range/Units 11:38 13:40 18:56 AST 21 (13-39) U/L Troponin I High Sens 14.2 17.1 17.9 (0-20) pg/ml 09/27/24 Range/Units 05:31 AST (13-39) U/L Troponin I High Sens 17.8 (0-20) pg/ml Coagulation 09/26/24 Range/Units 11:38 PT 12.0 (9.0-12.0) Seconds APTT 27 (21-31) Seconds CBC 09/26/24 09/27/24 Range/Units 11:38 05:31 WBC 6.18 5.63 (4.8-10.8) K/ul RBC 4.83 4.55 L (4.70-6.10) M/uL Hgb 15.2 14.3 (14.0-18.0) g/dl Hct 44.0 41.4 L (42.0-52.0) % Plt Count 174 155 (130-400) K/uL Neut # (Auto) 5.20 4.28 (1.40-6.50) K/uL Lymph # (Auto) 0.35 L 0.43 L (1.20-3.40) K/uL [place] # (Auto) 0.56 0.73 H (0.11-0.59) K/uL Eos # (Auto) 0.03 0.12 (0.00-0.50) K/uL Baso # (Auto) 0.02 0.04 (0.00-0.20) K/uL Comprehensive Metabolic Panel 09/26/24 09/27/24 Range/Units 11:38 05:31 Sodium 139 139 (136-145) mmol/L Potassium 3.9 3.7 (3.5-5.1) mmol/L Chloride 104 105 (98-107) mmol/L Carbon Dioxide 29 28 (21-32) mmol/L BUN 20 20 (6-23) mg/dl Creatinine 1.09 1.05 (0.6-1.4) mg/dl Glucose 183 H 124 H (70-99(Fasting)) mg/dl Calcium 10.3 9.3 (8.6-10.3) mg/dl AST 21 (13-39) U/L ALT 21 (7-52) U/L Alkaline Phosphatase 64 (34-104) U/L Total Protein 7.2 (6.0-8.3) gm/dl Albumin 4.6 (3.4-5.0) gm/dl Intake and Output 09/26/24 09/27/24 09/27/24 22:59 06:59 14:59 Intake Total 480 / 480 0 / 480 Output Total 1000 / 1350 350 / 1350 Balance -520 / -870 -350 / -870 Intake: Oral 480 / 480 0 / 480 Output: Urine 1000 / 1350 350 / 1350 Other: Weight 111.4 kg 110.7 kg Weight Measurement Method Built in [facility] Built in [facility]
--- NOTE | 2024-09-27 14:03 | Myocardial Perfusion Study ---
Date of Service September 27, 2024 Myocardial Perfusion Study [facility] Myocardial Perfusion Study Report Procedure: 1. Myocardial perfusion study performed in multiple views/images 2. Lexiscan pharmacologic stress ECG Indications: 1.Chest pain Ordering physician: Dr Caba Procedural details: For the stress portion of the study, Lexiscan 0.4 mg was intravenously administered followed by a saline flush. This was followed by 31.7 mCi of technetium 99m Cardiolite, injected at 11:20 am on 09/27/24. 30 minutes following the injection, imaging of the heart was performed in multiple projections. For the rest portion of the study, 10.4 mCi technetium 99m Cardiolite was injected intravenously at 9:27 am on 09/27/24. 1 hour following the injection, imaging of the heart was performed in the same projections. Lexiscan stress ECG: Resting ECG demonstrated:Sinus rhythm in the 60s. The ST segments are normal on the rest EKG. Maximum heart rate:102 bpm Maximal, age-predicted heart rate: 68% Resting blood pressure: 181/94 mmHg Maximum blood pressure: 181/94 mmHg Lowest blood pressure: 159/84 The stress EKG response is negative for ischemia. No arrhythmias were observed. Symptoms: Patient described mild transient nauseousness. No chest discomfort. Findings: Rotating raw imaging demonstrated no significant lung uptake. There is no significant motion artifact. Heart size appeared normal. Normal perfusion was noted post-rest and post rest. The left ventricular ejection fraction was calculated be 38%, but this is felt to not be reliable due to artifact with gating. The wall motion cannot be assessed due to artifact related to gating issue. No significant transient ischemic dilation. Impression: 1. The pharmacologic myocardial fusion imaging study is normal without evidence of scar or inducible ischemia 2. Hypertension was observed at baseline which improved after the administration of regadenoson. 3.No symptoms suggestive of angina were reported. 4.The left ventricular ejection fraction was calculated be 38%, but this is felt to be artifactual with normal ejection noted on echocardiogram yesterday.
[2024-09-27] MEDS: REGADENOSON 0.4 MG/5 ML SYR IV ONE (14:08)
[2024-09-27] MEDS: carvediloL 12.5 MG TAB PO SCH (17:00)
[2024-09-27] MEDS: HEPARIN SOD 5,000 UNIT/0.5 ML VIAL SQ SCH (21:14)
[2024-09-28] MEDS ORDERED: ATROPINE SULFATE 0.1 MG/ML 10ML SYR IV PRN (00:10)
--- NOTE | 2024-09-28 00:10 | Communication Note ---
Date of Service: September 28, 2024 Code purple called past midnight Patient complained of nausea. Was noted to be pale and diaphoretic. Heart rates 30s, SBP unobtainable. AP Symptomatic bradycardia Atropine given for symptomatic bradycardia IVF bolus Hold Coreg and HCTZ for now. SBP 90s, heart rate 70s after initial intervention.
[2024-09-28] MEDS: SODIUM CHLORIDE 0.9% 1,000 ML IV ONE (00:15)
[2024-09-28] MEDS ORDERED: PROMETHAZINE 6.25 MG/50.25 ML BAG IV PRN (00:25)
[2024-09-28 00:54] LABS: Basophils # (auto) 0.05 K/uL (0.00-0.20); Basophils % (auto) 0.9 %; Eosinophils # (auto) 0.15 K/uL (0.00-0.50); Eosinophils % (auto) 2.6 %; Hematocrit (blood only) 39.7 % (42.0-52.0); Hemoglobin 13.4 g/dl (14.0-18.0); Immature Granulocytes # (auto) 0.03 K/uL (0.01-0.20); Immature Granulocytes % (auto) 0.5 %; Lymphocytes # (auto) 0.72 K/uL (1.20-3.40); Lymphocytes % (auto) 12.3 %; Mean Corpuscular Hgb Conc 33.8 g/dL (32.0-36.0); Mean Corpuscular Volume 91.9 fL (80.0-100.0); Mean Platelet Volume 11.8 fL (9.4-12.4); Monocytes # (auto) 0.66 K/uL (0.11-0.59); Monocytes % (auto) 11.2 %; Neutrophils # (auto) 4.26 K/uL (1.40-6.50); Neutrophils % (auto) 72.5 %; Platelet Count 163 K/uL (130-400); RDW Coefficient of Variation 13.1 % (11.5-14.5); Red Blood Count 4.32 M/uL (4.70-6.10); White Blood Count 5.87 K/ul (4.8-10.8)
[2024-09-28 01:10] LABS: BUN Creatinine Ratio 19.5 (10-20); Calcium 8.8 mg/dl (8.6-10.3); Creatinine Clr Calc Pharmacy 64.5 ml/min; Magnesium 1.5 mg/dl (1.7-2.4); Potassium 3.4 mmol/L (3.5-5.1)
[2024-09-28 01:25] LABS: Thyroid Stimulating Hormone 2.952 uIu/ml (0.300-4.500)
[2024-09-28] MEDS: MAGNESIUM SULFATE / D5W 1 GM/100 ML BAG IV SCH (01:28)
[2024-09-28] MEDS: POTASSIUM CHLORIDE PWD 20 MEQ PACK PO STA (01:29)
[2024-09-28] MEDS: NSS + 20MEQ KCL 20 MEQ/1,000 ML BAG IV ONE (01:45)
--- NOTE | 2024-09-28 06:28 | Electrocardiogram Report ---
Test Reason : Blood Pressure : */* mmHG Vent. Rate : 68 BPM Atrial Rate : 68 BPM P-R Int : 160 ms QRS Dur : 102 ms QT Int : 412 ms P-R-T Axes : 52 -20 48 degrees QTcB Int : 438 ms Normal sinus rhythm Normal ECG When compared with ECG of 26-Sep-2024 11:34, No significant change was found Confirmed by López White ([id number]) on 09/28/2024 6:28:11 AM Referred By: REFERRED SELF Confirmed By: López White
--- NOTE | 2024-09-28 10:20 | Cardiology Progress Note ---
Date of Service September 28, 2024 Assessment & Plan (1) Chest pain: (2) Uncontrolled hypertension: (3) Hypertensive urgency: (4) HTN, goal below 130/80: (5) Dyslipidemia, goal LDL below 70: Plan 74-year-old male presenting to [facility] ER on September 26, 2024 with chest discomfort. Patient with multiple cardiac risk factors including hypertension, dyslipidemia, type 2 diabetes mellitus, past tobacco use, physical inactivity/obesity, family history of ischemic heart disease. Blood pressure markedly elevated on presentation, 206/106. - EKG without acute change. - High-sensitivity troponin negative x 4. - Resting echocardiography with preserved LV systolic function, without regional wall motion abnormalities. - Chest x-ray without acute cardiopulmonary process. - Nonischemic Lexiscan nuclear stress test on September 27, 2024 - Symptomatic bradycardia versus vasovagal episode overnight. Recommendations: * Observe off of Carvedilol and HCTZ for now, likely reintroduce carvedilol at 3.125 mg BID and HCTZ at 12.5 mg/day * Supplement potassium and magnesium * Continue CHRIS Inhibitor, aspirin, and statin * Meloxicam and Pioglitazone discontinued this admission. * Consider the addition of an SGLT2 Inhibitor such as Empagliflozin (Jardiance) Admission and Anticipated Discharge Date Admission Date: September 26, 2024 Supervising Physician Co-Signing Physician Notes Attending attestation: Case reviewed with the advanced practitioner. I have personally performed a history and physical examination on the patient. I have reviewed the advanced practitioner's documentation on the date of service referenced in note, and I agree with, and take responsibility for the plan of care Transient vagal event last evening possibly in relation to today medication changes as noted. Plan as above reintroduce carvedilol at reduced dose expect several days duration of therapies to achieve full antihypertensive effect. Will require close clinical follow-up post discharge with ultimate goals control. Discussed need for multiple drug therapies in the setting of longstanding hypertension Subjective Patient seen and examined. Chart, medications, telemetry reviewed. Status post September 27, 2024 Lexiscan nuclear stress testing, without evidence of scar or inducible ischemia. Last night around midnight patient developed severe right shoulder pain. He describes sitting up and feeling nauseous then breaking out into a sweat. The next thing he remembers 10 people were in his room. Code Purple called. SBP unattainable per documentation. Telemetry reveals junctional rhythm in the 30s. Patient received atropine for symptomatic bradycardia and IV fluid bolus. Carvedilol and HCTZ held by brace end mainspring former. EKG this morning reveals normal sinus rhythm at 78 bpm. QTc 476 ms. Rhythm on telemetry currently sinus in the 70's. Physical Exam Physical Exam: General: No acute distress. HENT: Normocephalic. Atraumatic. Eyes: PER. Conjunctiva pink, sclera clear. Neck: No JVD. Heart: Regular, 76 bpm. No murmur. Lungs: Clear to auscultation. Abdomen: +BS. Soft. Nontender. No masses or organomegaly. Extremities: No edema. No cyanosis. Limited neurological examination is without focal deficits. Pulses: Posterior tibial=1/4. Results & Data Vital Signs (Past 12 Hours) Vital Signs Temp Pulse Pulse Resp BP Pulse Ox O2 Del Method 09/28/24 08:20 36.6 C 68 18 158/83 H 96 Room Air 09/28/24 05:47 69 09/28/24 05:23 74 127/68 09/28/24 03:57 36.5 C 69 18 107/54 L 96 Room Air 09/28/24 02:17 67 124/60 09/28/24 01:48 77 136/69 09/28/24 01:36 97 Room Air 09/28/24 01:35 73 146/77 H 09/28/24 01:17 150/75 H 09/28/24 01:01 71 133/71 09/28/24 00:58 71 96 Nasal Cannula 09/28/24 00:55 127/67 09/28/24 00:46 115/62 09/27/24 23:11 66 O2 Flow Rate 09/28/24 08:20 09/28/24 05:47 09/28/24 05:23 09/28/24 03:57 09/28/24 02:17 09/28/24 01:48 09/28/24 01:36 09/28/24 01:35 09/28/24 01:17 09/28/24 01:01 09/28/24 00:58 2 09/28/24 00:55 09/28/24 00:46 09/27/24 23:11 Laboratory Results CBC 09/28/24 Range/Units 00:43 WBC 5.87 (4.8-10.8) K/ul RBC 4.32 L (4.70-6.10) M/uL Hgb 13.4 L (14.0-18.0) g/dl Hct 39.7 L (42.0-52.0) % Plt Count 163 (130-400) K/uL Neut # (Auto) 4.26 (1.40-6.50) K/uL Lymph # (Auto) 0.72 L (1.20-3.40) K/uL [place] # (Auto) 0.66 H (0.11-0.59) K/uL Eos # (Auto) 0.15 (0.00-0.50) K/uL Baso # (Auto) 0.05 (0.00-0.20) K/uL Comprehensive Metabolic Panel 09/28/24 Range/Units 00:43 Sodium 139 (136-145) mmol/L Potassium 3.4 L (3.5-5.1) mmol/L Chloride 106 (98-107) mmol/L Carbon Dioxide 26 (21-32) mmol/L BUN 26 H (6-23) mg/dl Creatinine 1.33 (0.6-1.4) mg/dl Glucose 132 H (70-99(Fasting)) mg/dl Calcium 8.8 (8.6-10.3) mg/dl Intake and Output 09/27/24 09/28/24 09/28/24 22:59 06:59 14:59 Intake Total 1300 / 1300 Output Total 200 / 400 Balance 1100 / 900 Intake: IV 1200 / 1200 Magnesium Sulfate / D5w 1 gm In 200 / 200 100 ml @ 50 mls/hr IV Q2H [facility] Rx#:[id number] Sodium Chloride 0.9% 1,000 ml @ 1000 / 1000 999 mls/hr IV .Q1H1M ONE Rx#: [id number] Oral 100 / 100 Output: Urine 200 / 400 Other: Weight 111.2 kg Weight Measurement Method Built in [facility] Diagnostic Findings September 26, 2024 TTE: Mild concentric LVH. No regional wall motion abnormalities. Normal LV systolic function. EF 55 to 60%. Normal RV size and function. Grade 1 diastolic dysfunction. No significant valvular disease. September 27, 2024 Lexiscan Impression: 1. The pharmacologic myocardial fusion imaging study is normal without evidence of scar or inducible ischemia 2. Hypertension was observed at baseline which improved after the administration of regadenoson. 3. No symptoms suggestive of angina were reported. 4. The left ventricular ejection fraction was calculated be 38%, but this is felt to be artifactual with normal ejection noted on echocardiogram yesterday.
--- NOTE | 2024-09-28 11:06 | Hospitalist Progress Note ---
Date of Service September 28, 2024 Assessment & Plan (1) Chest pain: (2) Hypertensive urgency: Plan 74-year-old male with history of diabetes type 2, hypertension, GERD, BPH, chronic low back pain with right-sided sciatica, presenting with burning sensation on the chest, fatigue x 5 days. Chest pain Hypertensive urgency Risk factors for coronary disease: Family history- (+)CAD mother and brother, diabetes type 2, hypertension Troponin x 4 negative EKG no acute signs of ischemia or infarct Echocardiogram on admission with EF 55-60%, Grade 1 diastolic dysfunction Nuclear stress test on 09/27/24 noted normal perfusion. EF was calculated at 38% but felt to be artifactual due to technical limitation with gating per Cardiology Cardiology recommended the following medication changes: Home simvastatin changed to rosuvastatin, discontinue home pioglitazone and meloxicam, can start jardiance Coreg started inpatient currently on hold due to event overnight Monitor BP Hypomagnesemia and hypokalemia repleted overnight. Will monitor Diabetes type 2 Lantus 8 units in the morning Insulin sliding scale hgba1c of 5.6 Will stop pioglitazone on discharge and do jardiance Rash on Right lower leg Lyme negative Left lower extremity edema Virgen's Cyst Doppler ultrasound no DVT, noted Virgen's cyst Other chronic medical problems: GERD-continue omeprazole BPH Chronic low back pain on hydrocodone Diet: HH/DMII DVT prophylaxis: heparin SQ PT/OT I spent a total of 50 minutes coordinating, documenting and providing care for this patient excluding time spent in performance of separately billed services Admission and Anticipated Discharge Date Admission Date: September 26, 2024 Subjective Patient had a rapid response overnight which was not serious, pale and diaphoretic. Heart rate was 130s and systolic blood pressure was unobtainable. Patient had symptomatic bradycardia at the time. Got atropine and IV fluid bolus. Coreg and hydrochlorothiazide were held Patient seen and examined this AM Denied any complaints on ROS this AM Physical Exam Constitutional: + well hydrated; no acute distress Eyes: PERRL, conjunctivae normal, anicteric sclerae ENMT: external ear and nose normal, oropharynx normal Respiratory: normal respiratory effort, lungs clear to auscultation Cardiovascular: Rate/Rhythm: regular rate and regular rhythm Gastrointestinal (Abdomen): normal bowel sounds, soft, nontender, no hepatosplenomegaly Musculoskeletal: No pedal edema Neurologic: PERRL, EOMI, accommodation nl, no face palsy, no dysarthria Psychiatric: A+Ox3, euthymic affect Results & Data Results & Data Vital Signs (Past 12 Hours) Vital Signs Temp Pulse Pulse Resp BP Pulse Ox O2 Del Method 09/28/24 08:20 36.6 C 68 18 158/83 H 96 Room Air 09/28/24 05:47 69 09/28/24 05:23 74 127/68 09/28/24 03:57 36.5 C 69 18 107/54 L 96 Room Air 09/28/24 02:17 67 124/60 09/28/24 01:48 77 136/69 09/28/24 01:36 97 Room Air 09/28/24 01:35 73 146/77 H 09/28/24 01:17 150/75 H 09/28/24 01:01 71 133/71 09/28/24 00:58 71 96 Nasal Cannula 09/28/24 00:55 127/67 09/28/24 00:46 115/62 09/27/24 23:11 66 O2 Flow Rate 09/28/24 08:20 09/28/24 05:47 09/28/24 05:23 09/28/24 03:57 09/28/24 02:17 09/28/24 01:48 09/28/24 01:36 09/28/24 01:35 09/28/24 01:17 09/28/24 01:01 09/28/24 00:58 2 09/28/24 00:55 09/28/24 00:46 09/27/24 23:11 Laboratory Results Abnormal lab results 09/27/24 09/27/24 09/28/24 Range/Units 12:16 16:24 00:43 RBC 4.32 L (4.70-6.10) M/uL Hgb 13.4 L (14.0-18.0) g/dl Hct 39.7 L (42.0-52.0) % Lymph # (Auto) 0.72 L (1.20-3.40) K/uL [place] # (Auto) 0.66 H (0.11-0.59) K/uL Potassium 3.4 L (3.5-5.1) mmol/L BUN 26 H (6-23) mg/dl Glucose 132 H (70-99(Fasting)) mg/dl POC Glucose 140 H 153 H (70-99) mg/dl Magnesium 1.5 L (1.7-2.4) mg/dl 09/28/24 09/28/24 Range/Units 07:21 11:25 RBC (4.70-6.10) M/uL Hgb (14.0-18.0) g/dl Hct (42.0-52.0) % Lymph # (Auto) (1.20-3.40) K/uL [place] # (Auto) (0.11-0.59) K/uL Potassium (3.5-5.1) mmol/L BUN (6-23) mg/dl Glucose (70-99(Fasting)) mg/dl POC Glucose 113 H 123 H (70-99) mg/dl Magnesium (1.7-2.4) mg/dl
[2024-09-28] MEDS ORDERED: carvediloL 3.125 MG TAB PO SCH (17:00)
[2024-09-28] MEDS: carvediloL 3.125 MG TAB PO SCH (17:20)
--- NOTE | 2024-09-29 06:26 | Electrocardiogram Report ---
Test Reason : Blood Pressure : */* mmHG Vent. Rate : 78 BPM Atrial Rate : 78 BPM P-R Int : 154 ms QRS Dur : 98 ms QT Int : 418 ms P-R-T Axes : 12 -24 28 degrees QTcB Int : 476 ms Normal sinus rhythm Normal ECG When compared with ECG of 27-Sep-2024 04:17, No significant change was found Confirmed by López White ([id number]) on 09/29/2024 6:25:53 AM Referred By: REFERRED SELF Confirmed By: López White
[2024-09-29 06:40] LABS: Hematocrit (blood only) 40.5 % (42.0-52.0); Hemoglobin 13.8 g/dl (14.0-18.0); Mean Corpuscular Hemoglobin 31.2 pg (25.0-34.0); Mean Corpuscular Hgb Conc 34.1 g/dL (32.0-36.0); Mean Corpuscular Volume 91.4 fL (80.0-100.0); Mean Platelet Volume 12.2 fL (9.4-12.4); Platelet Count 154 K/uL (130-400); RDW Standard Deviation 43.3 fL (36.4-46.3); Red Blood Count 4.43 M/uL (4.70-6.10); White Blood Count 5.81 K/ul (4.8-10.8)
[2024-09-29 06:44] LABS: BUN Creatinine Ratio 18.7 (10-20); Calcium 8.9 mg/dl (8.6-10.3); Creatinine Clr Calc Pharmacy 80.3 ml/min; Magnesium 1.7 mg/dl (1.7-2.4); Phosphorus 3.3 mg/dl (2.5-4.9); Potassium 3.7 mmol/L (3.5-5.1)
[2024-09-29] MEDS: POTASSIUM CHLORIDE 10 MEQ TABCR PO ONE (08:02)
[2024-09-29] MEDS: MAGNESIUM SULFATE / D5W 1 GM/100 ML BAG IV SCH (08:02)
[2024-09-29 08:16] VITALS: O2SAT 96
--- NOTE | 2024-09-29 09:53 | Cardiology Progress Note ---
Date of Service September 29, 2024 Assessment & Plan (1) Chest pain: (2) Uncontrolled hypertension: (3) Hypertensive urgency: (4) HTN, goal below 130/80: (5) Dyslipidemia, goal LDL below 70: Plan 74-year-old male presenting to [facility] on September 26, 2024 with chest discomfort. Patient with multiple cardiac risk factors including hypertension, dyslipidemia, type 2 diabetes mellitus, past tobacco use, physical inactivity/obesity, family history of ischemic heart disease. Blood pressure markedly elevated on presentation, 206/106. - EKG without acute change. - High-sensitivity troponin negative x 4. - Resting echocardiography with preserved LV systolic function, without regional wall motion abnormalities. - Chest x-ray without acute cardiopulmonary process. - Nonischemic Lexiscan nuclear stress test on September 27, 2024 - Vasovagal episode in early AM of 09/28 Recommendations: * Carvedilol 3.125 mg BID * Amlodipine 2.5 mg/day * Benazepril 40 mg/day * HCTZ 12.5 mg/day * Continue aspirin and statin (simvastatin changed to rosuvastatin this admission) * Meloxicam and Pioglitazone discontinued this admission. * Consider the addition of an SGLT2 Inhibitor such as Empagliflozin (Jardiance) * Patient scheduled to see [facility], Pooja FLORES, on 10/03/2024 at 10 AM * Outpatient cardiology follow-up in 2-4 weeks Admission and Anticipated Discharge Date Admission Date: September 26, 2024 Supervising Physician Co-Signing Physician Notes Attending attestation: Case reviewed with the advanced practitioner. I have personally performed a history and physical examination on the patient. I have reviewed the advanced practitioner's documentation on the date of service referenced in note, and I agree with, and take responsibility for the plan of care Patient today feels improved. Assessment and plan as outlined by advanced provider above with medication adjustments. Ultimately goals of further management adjustment of antihypertensives as outpatient. With close clinical medical and cardiology follow-up Subjective Patient seen and examined. Chart, medications, telemetry reviewed. Feels better overall. Slept well. No issues overnight. Denies chest pain, palpitations, shortness of breath, orthopnea, PND, edema, dizziness, or near syncope. Telemetry: Sinus rhythm with occasional atrial ectopy, heart rates predominantly in the 70s. Physical Exam Physical Exam: General: No acute distress. HENT: Normocephalic. Atraumatic. Eyes: PER. Conjunctiva pink, sclera clear. Neck: No JVD. Heart: Regular, 70 bpm. No murmur. Lungs: Clear to auscultation. Abdomen: +BS. Soft. Nontender. No masses or organomegaly. Extremities: No edema. No cyanosis. Limited neurological examination is without focal deficits. Pulses: Posterior tibial=1/4. Results & Data Vital Signs (Past 12 Hours) Vital Signs Temp Pulse Pulse Resp BP Pulse Ox O2 Del Method 09/29/24 08:15 36.8 C 73 20 156/87 H 96 Room Air 09/29/24 05:46 56 L 09/29/24 04:18 36.4 C L 66 18 144/89 H 95 Room Air 09/28/24 23:37 36.6 C 69 18 144/71 H 97 Room Air 09/28/24 22:44 63 Laboratory Results CBC 09/29/24 Range/Units 05:50 WBC 5.81 (4.8-10.8) K/ul RBC 4.43 L (4.70-6.10) M/uL Hgb 13.8 L (14.0-18.0) g/dl Hct 40.5 L (42.0-52.0) % Plt Count 154 (130-400) K/uL Comprehensive Metabolic Panel 09/29/24 Range/Units 05:50 Sodium 141 (136-145) mmol/L Potassium 3.7 (3.5-5.1) mmol/L Chloride 109 H (98-107) mmol/L Carbon Dioxide 26 (21-32) mmol/L BUN 20 (6-23) mg/dl Creatinine 1.07 (0.6-1.4) mg/dl Glucose 105 H (70-99(Fasting)) mg/dl Calcium 8.9 (8.6-10.3) mg/dl Intake and Output 09/28/24 09/29/24 09/29/24 22:59 06:59 14:59 Intake Total 1000 / 1830 150 / 1830 Output Total 452 / 803 Balance 548 / 1027 150 / 1027 Intake: IV 1000 / 1000 Nss + 20Meq KCl 20 meq In 1,000 1000 / 1000 ml @ 60 mls/hr IV .[id number] ONE Rx#:[id number] Oral 150 / 830 Output: Urine 450 / 800 # Bowel Movements 2 / 3 Other: # Unmeasured Voids 2 Weight 110.9 kg Weight Measurement Method Built in [facility] Diagnostic Findings September 26, 2024 TTE: Mild concentric LVH. No regional wall motion abnormalities. Normal LV systolic function. EF 55 to 60%. Normal RV size and function. Grade 1 diastolic dysfunction. No significant valvular disease. September 27, 2024 Lexiscan Impression: 1. The pharmacologic myocardial fusion imaging study is normal without evidence of scar or inducible ischemia 2. Hypertension was observed at baseline which improved after the administration of regadenoson. 3. No symptoms suggestive of angina were reported. 4. The left ventricular ejection fraction was calculated be 38%, but this is felt to be artifactual with normal ejection noted on echocardiogram yesterday.
--- NOTE | 2024-09-29 10:08 | Discharge Summary ---
Date of Service September 29, 2024 Admission HPI Per Admitting Provider 74-year-old male with history of diabetes type 2, hypertension, GERD, BPH, chronic low back pain with right-sided sciatica, presenting with burning sensation on the chest, fatigue since . Patient states that he was working in his basement last when he noted burning sensation all over his chest associated with some dizziness and clammy skin, prompting him to go upstairs and at rest. This episode also happened 2 weeks ago. He has also been noticing fatigue with minimal exertion since that time. Upon arrival to the ER, blood pressure 206/106, heart rate 89, respiratory rate 18, temperature afebrile, 92% on room air. EKG no signs of ischemia or infarct Troponin x 2 negative Chest x-ray: No acute process Positive chronic fibrotic change at the cardiac apex, heart size remains slightly increased compared to 2021 He was given labetalol 10 mg IV which improved his blood pressure to 174/93. On exam, patient states he feels somewhat weak but denies active chest pain, shortness of breath, palpitations, dizziness, nausea. Admission Exam Per Admitting Provider General- oriented x 3, not in distress, speaks in sentences with no effort or accessory muscle use Head- atraumatic Eyes- PERRL, EOMI, anicteric ENT- oropharynx clear Neck- supple, no JVD, no adenopathy, no thyromegaly; carotids +2/2, no bruits appreciated Lungs- clear to auscultation bilaterally, no rales/wheezes Heart- normal rate, regular rhythm; no murmur, no gallop, no rub appreciated Abdomen- normal bowel sounds, nondistended, soft, nontender, no masses or hepatosplenomegaly Extremities- no pretibial edema, no calf tenderness; peripheral pulses intact Neuro- alert, oriented x 3; CN 2-12 grossly intact; motor 5/5 bilaterally;sen sation 100% on all extremities; no other gross focal neurologic deficits Skin- warm & dry Principal Diagnosis Chest pain Hypertensive urgency Discharge Exam Constitutional + well hydrated; no acute distress Eyes PERRL, conjunctivae normal, anicteric sclerae ENMT external ear and nose normal, oropharynx normal Respiratory normal respiratory effort, lungs clear to auscultation Cardiovascular Rate/Rhythm: regular rate and regular rhythm Gastrointestinal (Abdomen) normal bowel sounds, soft, nontender, no hepatosplenomegaly Musculoskeletal No pedal edema Neurologic PERRL, EOMI, accommodation nl, no face palsy, no dysarthria Psychiatric A+Ox3, euthymic affect Discharge Data Allergies Allergy/AdvReac Type Severity Reaction Status Date / Time propoxyphene Allergy Severe severe Verified 09/26/24 15:27 [From Karley] hives acetaminophen Allergy Unknown Unknown - Unverified 09/26/24 15:27 On file / [facility] methadone Allergy Unknown Unknown - Unverified 09/26/24 15:27 On file [facility] Consultations 09/26/24 13:47 ED Decision to Admit Stat 09/26/24 14:09 Consult Cardiology Routine Ordered Studies 09/26/24 14:51 US venous doppler LE LT Stat Hospital Course (1) Chest pain: (2) Hypertensive urgency: Plan 74-year-old male with history of diabetes type 2, hypertension, GERD, BPH, chronic low back pain with right-sided sciatica, presenting with burning sensation on the chest, fatigue x 5 days. Chest pain Hypertensive urgency Risk factors for coronary disease: Family history- (+)CAD mother and brother, diabetes type 2, hypertension Troponin x 4 negative EKG no acute signs of ischemia or infarct Echocardiogram on admission with EF 55-60%, Grade 1 diastolic dysfunction Nuclear stress test on 09/27/24 noted normal perfusion. EF was calculated at 38% but felt to be artifactual due to technical limitation with gating per Car diology Cardiology recommended the following medication changes: Home simvastatin changed to rosuvastatin, discontinue home pioglitazone and meloxicam, can start jardiance Coreg was started and after increase to 12.5mg BID, patient had symptomatic bradycardia and it was held Coreg was reintroduced at lower dose of 3.125mg BID Cardiology recommends discharging on Amlodipine 2.5mg daily, Coreg 3.125mg and to continue home benazepril 40mg daily and HCTZ 12.5mg daily Patient's simvastatin was changed to rosuvastatin His meloxicam was stopped and his pioglitazone changed to jardiance 10mg daily Diabetes type 2 Hgba1c of 5.6 Pioglitazone changed to jardiance 10mg daily Total Time Total Time Spent Total Time Spent (In Minutes): 45 Total Time Includes: Examination of the Patient, Discharge Planning, Medication Reconciliation and Communication With Other Providers Discharge Plan Discharge Items Patient Disposition: Home - Self-Care Reason For Visit: HYPERTENSIVE URGENCY Discharge Diagnosis: Chest pain Hypertensive urgency Activity: Resume your previous activity Non-emergency contact: Primary Care Provider Call non-emergency contact if: you have any medication questions and your symptoms worsen Follow-up/Referrals: Luisito Gong, [Primary Care Provider] - (Date & Time 10/03/2024 10:00 AM Provider: Pooja Avila CRNP [facility] ) Diet: Carb Consistent or DM2, Heart Healthy and Low Sodium (2gm) Addtl Attending Provider Instructions: Mr Batista You were hospitalized and managed for the above listed diagnoses. The following changes were made to your medications: - You were started on amlodipine 2.5mg daily and carvedilol 3.125mg twice a day - Your Pioglitazone was stopped and you were started on Jardiance 10mg daily - Your Simvastatin was changed to Rosuvastatin 20mg daily - Stop taking meloxicam Please continue your Benazepril and Hydrochlorothiazide Please ensure follow up with your Primary Doctor It was a pleasure taking care of you Pending Studies at Discharge: No Stand-Alone Forms: My [facility] [employer], Smoking Cessation Medications and DC Order Prescriptions: New amlodipine 2.5 mg tablet 2.5 mg PO DAILY Qty: 30 0RF carvedilol 3.125 mg Tablet 3.125 mg PO BIDM 30 Days Qty: 60 0RF rosuvastatin 20 mg Tablet 20 mg PO QAM 30 Days Qty: 30 0RF Jardiance 10 mg tablet 10 mg PO DAILY Qty: 30 0RF Continued aspirin [Adult Low Dose Aspirin] 81 mg tablet,delayed release (DR/EC) 81 mg PO QAM Rx Instructions: Unable to verify OTC meds at this date/time. multivitamin tablet 1 tab PO QAM Rx Instructions: Unable to verify OTC meds at this date/time. omeprazole 20 mg capsule,delayed release(DR/EC) 20 mg PO QAM hydrochlorothiazide 25 mg Tablet 12.5 mg PO QAM benazepril 40 mg Tablet 40 mg PO QAM Medical Thc 1 dose inhalation UD PRN (Reason: Pain) Rx Instructions: Unable to verify OTC meds at this date/time. tramadol 50 mg tablet 50 mg PO Q6H PRN (Reason: pain, moderate) Qty: 30 0RF Rx Instructions: Not on file w/ pharmacy. hydrocodone-acetaminophen 5-325 mg Tablet 0 tab PO TID PRN (Reason: Pain) Rx Instructions: Pharmacy confirmed acetaminophen allergy on file, but also confirmed that pt is getting this medication. Original Directions: 1 tablet by mouth TID as needed for pain. potassium chloride 10 mEq Tablet Extended Release 10 meq PO DAILY Discontinued meloxicam 7.5 mg tablet 7.5 mg PO QAM simvastatin 10 mg Tablet 10 mg PO QAM pioglitazone [Actos] 30 mg Tablet 30 mg PO QAM Discharge Orders: Discharge Order (Routine); Ordered 09/29/24 Ordered By: Whitley Anaya Admission Data Admit Date/Time: 09/26/24 14:09 Attending Provider: Whitley Anaya I. Admit Provider: Jatin Pittman Primary Care Provider: Luisito Gong Other Providers: Jatin Pittman; Mey Hogue; Anuj Caba; John Paul Pedroza; Mendez Mulligan; George Camops; Everardo Mulligan; Laura Kirk; Umu Winston; Adina Allison Ashley M.; Willie Mclean; Aftab Stuart; Lucinda Lund; Nan Khan; Sue Castellanos; Nata Constantino; Jose Lopez; Tara Grey; Carmen Jasso; Michelle Fierro Other Interventions: Discharge Summary Assessment (RN) Last Done: 09/29/24 10:26
[2024-09-29 11:31] VITALS: PULSE 67; RESP 18; TEMP 97.8
[2024-09-29 12:11] VITALS: BP 145/71
[2024-09-29] MEDS ORDERED: SODIUM CHLORIDE 0.9% 10ML FLUSH IV ONE (13:05)
[2024-09-29] MEDS ORDERED: ATROPINE SULFATE 0.1 MG/ML 10ML SYR IV ONE (13:05)
== END 2024-09-29 13:06 | disposition home or self-care (01) | DRG 305 ==
LOC: ED 11:12 → SUATTDRO 14:09 → EDINP 14:09 → 2E 15:56